=== PATIENT | male | born 1945 | race Caucasian/White ===

== ENCOUNTER 2022-12-27 16:13 | Emergency (ER) | payer MEDICARE, OTHER ==
[~2022-12-27] VITALS: Ht 182.9 cm; Wt 101.6 kg
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
[2022-12-27 16:38] LABS: BASOPHILS % (AUTO) 1 % (0-10); EOSINOPHILS # (AUTO) 0.2 10^3/uL (0.0-0.3); EOSINOPHILS % (AUTO) 3 % (0-10); HEMATOCRIT 31 % (40-54); HEMOGLOBIN 9.5 g/dL (13.3-17.7); LYMPHOCYTES # (AUTO) 1.6 10^3/uL (1.0-4.0); LYMPHOCYTES % (AUTO) 26 % (12-44); MEAN CORPUSCULAR HEMOGLOBIN 27 pg (25-34); MEAN CORPUSCULAR HGB CONC 31 g/dL (32-36); MEAN CORPUSCULAR VOLUME 87 fL (80-99); MEAN PLATELET VOLUME 9.8 fL (9.0-12.2); MONOCYTES # (AUTO) 0.6 10^3/uL (0.0-1.0); MONOCYTES % (AUTO) 9 % (0-12); NEUTROPHILS # (AUTO) 3.9 10^3/uL (1.8-7.8); NEUTROPHILS % (AUTO) 62 % (42-75); PLATELET COUNT 268 10^3/uL (130-400); WHITE BLOOD COUNT 6.3 10^3/uL (4.3-11.0)
[2022-12-27 16:39] LABS: BILIRUBIN,URINE NEGATIVE (NEGATIVE); CLARITY,URINE CLEAR; COLOR,URINE YELLOW; GLUCOSE, URINE (UA) NEGATIVE (NEGATIVE); KETONES,URINE TRACE (NEGATIVE); LEUKOCYTE ESTERASE ,URINE NEGATIVE (NEGATIVE); NITRITE,URINE NEGATIVE (NEGATIVE); PH,URINE 5.5 (5-9); PROTEIN,URINE NEGATIVE (NEGATIVE)
[2022-12-27 16:47] LABS: BACTERIA,URINE NEGATIVE /HPF; HYALINE CASTS, URINE RARE /LPF; WBC,URINE RARE /HPF
[2022-12-27 16:53] LABS: INR 0.9 (0.8-1.4); PROTHROMBIN TIME PATIENT 12.3 SEC (12.2-14.7)
[2022-12-27 17:04] LABS: ALANINE AMINOTRANSFERASE 15 U/L (0-55); ALBUMIN 3.7 GM/DL (3.2-4.5); ALKALINE PHOSPHATASE 97 U/L (40-136); BILIRUBIN,TOTAL 0.2 MG/DL (0.1-1.0); BUN/CREATININE RATIO 19; CALCIUM 9.6 MG/DL (8.5-10.1); CARBON DIOXIDE 26 MMOL/L (21-32); CHLORIDE 104 MMOL/L (98-107); CREATININE SERUM 1.29 MG/DL (0.60-1.30); GFR ESTIMATED 57; GLUCOSE 126 MG/DL (70-105); MAGNESIUM 1.8 MG/DL (1.6-2.4); POTASSIUM 4.5 MMOL/L (3.6-5.0); SODIUM 140 MMOL/L (135-145); TOTAL PROTEIN 6.7 GM/DL (6.4-8.2)
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
[2022-12-27 18:20] VITALS: BP 142/78
== END 2022-12-27 18:22 | disposition home or self-care (01) ==
LOC: ER FS 16:17
DX: M50.30 Other cervical disc degeneration, unspecified cervical region (principal)
CPT/HCPCS: 36415; 70450; 72125; 80053; 81000; 83735; 84484; 85025; 85610; 85730

== ENCOUNTER 2023-03-09 14:01 | Outpatient (CLI) | payer MEDICARE, OTHER ==
[~2023-03-09] VITALS: Ht 180.3 cm; Wt 98.5 kg
[2023-03-09] MEDS ORDERED: GLIM4TAB5 PO (15:51)
[2023-03-09] MEDS ORDERED: DOXA2TAB2 PO (15:51)
[2023-03-09] MEDS ORDERED: LISI5TAB20 PO (15:51)
[2023-03-09] MEDS ORDERED: ACET325T38 PO (15:51)
[2023-03-09] MEDS ORDERED: METF750T45 PO (15:51)
[2023-03-09] MEDS ORDERED: LOVA20TA2 PO (15:51)
[2023-03-09] MEDS ORDERED: FERR324T4 PO (15:51)
[2023-03-09] MEDS ORDERED: CHOL500044 PO (15:51)
[2023-03-09] MEDS ORDERED: KRIL500C PO (15:51)
== END 2023-03-09 15:53 | disposition home or self-care (01) ==
LOC: PREOP 14:01
PROVIDERS: ATTEND Surgery
DX: Z01.818 Encounter for other preprocedural examination (principal)

== ENCOUNTER 2023-03-17 10:22 | Day surgery (SDC) | payer MEDICARE, OTHER ==
[~2023-03-17] VITALS: Ht 180 cm; Wt 98.5 kg
[~2023-03-17 10:22] MED LIST: ACET325T38 PO; CHOL500044 PO; DOXA2TAB2 PO; FERR324T4 PO; GLIM4TAB5 PO; KRIL500C PO; LISI5TAB20 PO; LOVA20TA2 PO; METF750T45 PO
[2023-03-17] MEDS ORDERED: LACTATED RINGERS 1,000 ML IV STA (10:28)
[2023-03-17] MEDS ORDERED: HURRICAINE EXT TUBE (BENZOCAINE) XX PRN (10:30)
[2023-03-17] MEDS ORDERED: LACTATED RINGERS 1,000 ML IV ONE (10:31)
[2023-03-17 10:45] VITALS: BP 135/108
--- NOTE | 2023-03-17 13:25 | Progress Note-Pre Operative ---
Pre-Operative Progress Note Date H&P Reviewed: Mar 17, 2023 Time H&P Reviewed: 13:25 History & Physical: H&P Reviewed, Patient Examed, No changes noted Pre-Operative Diagnosis: iron def anemia MURPHY RDZ DO Mar 17, 2023 13:25
[2023-03-17] MEDS ORDERED: PROPOFOL INJECTION 50 ML IV ONE (14:00)
[2023-03-17 14:50] VITALS: BP 126/74
[2023-03-17 14:55] VITALS: BP 127/59
--- NOTE | 2023-03-17 15:07 | Anesthesia-General Post-Op ---
MAC Patient Condition Mental Status/LOC: Same as Preop Cardiovascular: Satisfactory Nausea/Vomiting: Absent Respiratory: Satisfactory Pain: Controlled Complications: Absent Post Op Complications Complications None Follow Up Care/Instructions Patient Instructions None needed. Anesthesiology Discharge Order Discharge Order Patient was doing well after the procedure with no complaints, stable vital signs, no apparent adverse anesthesia problems. No complications reported per nursing. ARELY SHULTZ DO Mar 17, 2023 15:07
[2023-03-17 15:12] VITALS: BP 127/59
--- NOTE | 2023-03-17 15:30 | Progress Note-Post Operative ---
Post-Operative Progess Note Surgeon (s)/Manager Crisis (s) Surgeon MURPHY RDZ DO Manager Crisis: na Pre-Operative Diagnosis iron def anemia Post-Operative Diagnosis duodenitis with small ulcerations, vinson's esophagus, cecal and hepatic flexure mass Procedure & Operative Findings Date of Procedure 03/17/23 Procedure Performed/Findings egd c biopsies, colonoscopy c cold biopsies and dakota inking Anesthesia Type per [facility] Estimated Blood Loss Estimated blood loss (mL): scant Specimens/Packing Specimens Removed duodenum, antrum, ge, cecal mass, hepatic flexure mass MURPHY RDZ DO Mar 17, 2023 15:30
[2023-03-17] MEDS ORDERED: PANT40TA2 PO (15:31)
--- NOTE | 2023-03-17 15:32 | Discharge Inst-Simple/Standard ---
Discharge Inst-Standard Discharge Medications New, Converted or Re-Newed RX: Transmitted to Pharmacy Patient Instructions/Follow Up Plan of Care/Instructions/FU: 2 weeks umair Activity as Tolerated: Yes Discharge Diet: Regular Diet MURPHY RDZ DO Mar 17, 2023 15:32
[2023-03-17 16:05] VITALS: BP 127/59
--- NOTE | 2023-03-17 18:30 | OPERATIVE REPORT ---
DATE OF SERVICE: 03/17/2023 PREOPERATIVE DIAGNOSIS: Iron deficiency anemia. POSTOPERATIVE DIAGNOSES: Duodenitis with small ulcerations, Contreras's esophagus, cecal and hepatic flexure mass. PROCEDURES: EGD with biopsies, colonoscopy with cold biopsies and Emmy inking. SURGEON: Murphy Peralta DO ANESTHESIA: Per MDA. ESTIMATED BLOOD LOSS: Scant. COMPLICATIONS: None. SPECIMENS: Duodenum, antrum, GE junction, cecal mass, hepatic flexure mass. INDICATIONS: The patient is a 77-year-old male with iron deficiency anemia. He understands risks and benefits of procedure and wished to proceed. Consent was signed in chart. DESCRIPTION OF PROCEDURE: The patient was taken to endoscopy suite and placed in left lateral recumbent position. Timeout was performed. Scope was inserted in the mouth, down the esophagus and stomach, into the duodenum without difficulty. No polyps, masses or ulcerations in the second portion of the duodenum. First portion of the duodenum had inflammation present consistent with duodenitis and some small ulcerations. Biopsy of this area was obtained. Scope was retracted back into stomach where it was further insufflated. No polyps, masses or ulcerations were visualized within the antrum. Biopsy of the antrum was obtained. Scope was retroflexed noting some small benign-appearing polyps, no other pathology. Scope was returned to its normal position, slowly withdrawn until distal esophagus, demonstrating some slight Contreras's esophagus. Biopsy of GE junction was obtained. Scope was slowly retracted back until completely removed. Digital rectal exam was performed. No palpable polyps, masses or ulcerations. Scope was inserted into the rectum and advanced all the way to the cecum with minimal difficulty. Prep was adequate. Scope was slowly retracted back to the cecum where a large mass was present, which extended up into the ascending colon, which cold biopsies were obtained. Scope was then continuously retracted back to the hepatic flexure where a second mass was present, which was flat but still decent size, which cold biopsies were obtained. Just distal to this area, 3 mL of Emmy ink were injected, 1 mL in three locations just distal to this mass. Scope was then continuously retracted back. No polyps, masses or ulcerations within the remainder of the transverse, descending and sigmoid colon. Once in the rectum, scope was retroflexed noting no other pathology. Scope was returned to its normal position, slowly withdrawn until completely removed. The patient tolerated the procedure well without any complications and was taken to recovery room in stable condition. RECOMMENDATIONS: The patient will need further workup with imaging [ ] likely a colonic cancer. We will get further imaging and blood work. He will follow up in 2 weeks when this imaging and blood work is ordered. Due to the iron deficiency anemia, this is likely the source; therefore, we will plan on doing an extended right colon resection. Also, the patient will be started on Protonix 40 mg daily for the upper GI pathology. Job ID: [id number] DocumentID: [id number] Dictated Date: 03/17/2023 15:37:22 Border Guard Date: 03/17/2023 18:28:00 Dictated By: MURPHY PERALTA DO
== END 2023-03-17 16:05 | disposition home or self-care (01) ==
LOC: ENDO 10:22
PROVIDERS: ATTEND Surgery
DX: C18.0 Malignant neoplasm of cecum (principal); Z87.891 Personal history of nicotine dependence; D12.3 Benign neoplasm of transverse colon; K29.80 Duodenitis without bleeding; K26.9 Duodenal ulcer, unspecified as acute or chronic, without hemorrhage or perforation; K22.70 Barrett's esophagus without dysplasia; K29.50 Unspecified chronic gastritis without bleeding; D50.9 Iron deficiency anemia, unspecified; K31.7 Polyp of stomach and duodenum; E11.9 Type 2 diabetes mellitus without complications; Z79.84 Long term (current) use of oral hypoglycemic drugs
CPT/HCPCS: 82947

== ENCOUNTER → 2023-04-06 | Outpatient (CLI) | payer MEDICARE, OTHER ==
[~2023-04-06] MED LIST changes: +CATHETER FLUSH 10 ML SYR IVP PRN; +PANT40TA2 PO
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
== END ==
LOC: RAD 11:08
PROVIDERS: ATTEND Surgery
DX: C18.9 Malignant neoplasm of colon, unspecified (principal); Z90.49 Acquired absence of other specified parts of digestive tract
CPT/HCPCS: 78815; 82947; A9552

== ENCOUNTER → 2023-04-07 | Outpatient (CLI) | payer MEDICARE, OTHER ==
[~2023-04-07] MED LIST changes: -CATHETER FLUSH 10 ML SYR IVP PRN; +IOHEXOL 350 MG/ML 100 ML (OMNIPAQUE 350) VIAL IV ONE; +NS 100 ML (IVPB) BAG IV ONE
[2023-04-07 11:40] LABS: CREATININE SERUM 1.3 MG/DL (0.60-1.30)
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
== END ==
LOC: RAD 10:47
PROVIDERS: ATTEND Nurse Practitioner
DX: C18.9 Malignant neoplasm of colon, unspecified (principal)
CPT/HCPCS: 36415; 71260; 74177; 82378; 82565; 84520

== ENCOUNTER 2023-04-11 05:39 | Outpatient (CLI) | payer MEDICARE, OTHER ==
[~2023-04-11] VITALS: Ht 180.3 cm; Wt 95.5 kg
[~2023-04-11 05:39] MED LIST changes: -IOHEXOL 350 MG/ML 100 ML (OMNIPAQUE 350) VIAL IV ONE; -NS 100 ML (IVPB) BAG IV ONE
== END 2023-04-11 16:36 | disposition home or self-care (01) ==
LOC: PREOP 05:39
PROVIDERS: ATTEND Surgery
DX: Z01.818 Encounter for other preprocedural examination (principal)

== ENCOUNTER 2023-04-11 12:15 | Outpatient (RCR) | payer MEDICARE, OTHER ==
[2023-04-17] MEDS ORDERED: RIVA20TA PO (12:26)
[2023-04-17] MEDS ORDERED: GLIM4TAB5 PO (12:26)
[2023-04-17] MEDS ORDERED: DILT240C91 PO (12:26)
[2023-04-17] MEDS ORDERED: ACHD5005 PO (12:26)
== END 2023-05-11 | disposition home or self-care (01) ==
LOC: ONC 12:15
PROVIDERS: ATTEND Internal Medicine Hematology & Oncology
DX: C18.9 Malignant neoplasm of colon, unspecified (principal)
CPT/HCPCS: 99214

== ENCOUNTER 2023-04-13 06:39 | Inpatient (IN) | payer MEDICARE, OTHER ==
[2023-04-13] VITALS (17 sets, daily range): BP systolic 100–154; BP diastolic 49–74
[~2023-04-13] VITALS: Ht 180.3 cm; Wt 96.0 kg
[2023-04-13] MEDS ORDERED: LIDOCAINE 1% w/EPI 1:100,000 20 ML VIAL ONE (07:21)
[2023-04-13] MEDS ORDERED: metroNIDAZOLE 500MG/100ML IVPB 100 ML IV ONE (07:30)
[2023-04-13] MEDS ORDERED: ceFAZolin INJECTION 2,000 MG in NS (IVPB) 50 ML 50 ML IV ONE (07:30)
[2023-04-13] MEDS ORDERED: LACTATED RINGERS 1,000 ML IV PRN (07:30)
[2023-04-13] MEDS ORDERED: CATHETER FLUSH 10 ML SYR IVP PRN (07:45)
[2023-04-13] MEDS ORDERED: fentaNYL INJECTION 100 MCG/2 ML VIAL ONE (07:49)
--- NOTE | 2023-04-13 08:00 | Progress Note-Pre Operative ---
Pre-Operative Progress Note Date H&P Reviewed: Apr 13, 2023 Time H&P Reviewed: 07:46 History & Physical: H&P Reviewed, Patient Examed, No changes noted Pre-Operative Diagnosis: right colon cancer MURPHY RDZ DO Apr 13, 2023 08:00
[2023-04-13] MEDS ORDERED: LIDOCAINE PF 2% 5 ML VIAL ONE (09:44)
[2023-04-13] MEDS ORDERED: proPOfol 200 MG/20 ML (DIPRIVAN) VIAL IV ONE (09:44)
[2023-04-13] MEDS ORDERED: ONDANSETRON 4 MG/2 ML (SDV) Z0FRAN ONE (09:45)
[2023-04-13] MEDS ORDERED: NEOSTIGMINE (BLOXIVERZ ) 1 MG/1ML 10 ML VIAL ONE (09:45)
[2023-04-13] MEDS ORDERED: GLYCOPYRROLATE INJ 0.2 MG/ML 2 ML VIAL ONE (09:45)
[2023-04-13] MEDS ORDERED: ROCURONIUM 50 MG/5 ML (ZEMURON) VIAL IV ONE (09:45)
[2023-04-13] MEDS ORDERED: SEVOFLURANE (ULTANE) 15 ML INHAL SOLN ONE (09:55)
--- NOTE | 2023-04-13 09:58 | Progress Note-Post Operative ---
Post-Operative Progess Note Surgeon (s)/Bonding Machine Setter (s) Surgeon MURPHY RDZ DO Bonding Machine Setter: Dr. Tran Pre-Operative Diagnosis right colon cancer Post-Operative Diagnosis same Procedure & Operative Findings Date of Procedure 04/13/23 Procedure Performed/Findings lap hand assisted extended right colon resection Anesthesia Type general Estimated Blood Loss Estimated blood loss (mL): minimal Specimens/Packing Specimens Removed right colon MURPHY RDZ DO Apr 13, 2023 09:58
[2023-04-13] MEDS ORDERED: ONDANSETRON 4 MG/2 ML (SDV) Z0FRAN IVP PRN (10:45)
[2023-04-13] MEDS ORDERED: SUGAMMADEX 500 MG/5 ML VIAL (BRIDION) IV ONE (10:51)
[2023-04-13] MEDS ORDERED: morphine INJ 10 MG/ML 1ML (SYR OR VIAL) ONE (11:07)
[2023-04-13] MEDS ORDERED: HYDROmorphone INJECTION 2 MG/ML VIAL IV ONE (11:15)
[2023-04-13] MEDS ORDERED: morphine INJ 10 MG/ML 1ML (SYR OR VIAL) IVP ONE (11:15)
[2023-04-13] MEDS: morphine INJ 4 MG/ML 1 ML (VIAL/SYRINGE) IVP PRN ×2 (12:01→15:19)
[2023-04-13] MEDS: LACTATED RINGERS 1,000 ML IV SCH ×2 (12:10→14:10)
[2023-04-13] MEDS ORDERED: RT-ALBUTEROL SULF 2.5 MG/3 ML PRE-MIX VIAL INH PRN (13:00)
--- NOTE | 2023-04-13 13:01 | Physical Therapy Progress Note ---
Therapy Progress Note Patient just out of surgery. PT to initiate evaluation tomorrow ALTHEA Mcnamara PT Apr 13, 2023 13:01
--- NOTE | 2023-04-13 13:38 | Consultation ---
AGUEDABYRON 04/13/23 1338: HPI History of Present Illness: HPI/Chief Complaint Consult requested by Dr. Peralta for medical management. Patient is a 77-year-old male who underwent extended right colon resection today. He underwent an EGD and colonoscopy on 03/17 for iron-deficiency anemia and was found to have masses at the cecum and hepatic flexure. Biopsies were taken and further workup revealed this to be colon cancer, leading to the extended right colon resection. Patient is seen sleeping comfortably in bed, easily aroused. He reports that he is having some pain currently but that it is well-controlled with the pain medication. He reports no other complaints. Incisions are clean and dressed. Patient has no other complaints. Source: patient, old records Exam Limitations: no limitations Date Seen 04/13/23 Attending Physician Vaibhav Ni MD PCP Admitting Physician: Gui Peralta DO Attending Physician: Gui Peralta DO Referring Physician Date of Admission Apr 13, 2023 at 06:39 Home Medications & Allergies Home Medications Reviewed patient Home Medication Reconciliation performed by pharmacy medication reconciliations vending machine technician and/or nursing. Patients Allergies have been reviewed. Allergies Allergies Coded Allergies No Known Drug Allergies (Unverified04/13/23) Past Jdnblcr-Jaxbkd-Qooyre Hx Patient Social History Tobacco Use?: No Smoking Status: Former Smoker Smokeless type used: Chew Smokeless Tobacco Frequency: Former User Use of E-Cig and/or Vaping dev: No Substance use?: No Alcohol Use?: No Pt feels they are or have been: No Immunizations Up To Date Hepatitis A: No Hepatitis B: No Seasonal Allergies Seasonal Allergies: Yes Current Status Communicates: Verbally Primary Language: Italian Preferred Spoken Language: Italian Is interpretation needed?: No Sensory deficits: Vision impairment Implanted or Applied Medical D: None Past Medical History Surgeries: Gallbladder Hypertension Arthritis Diabetes, Non-Insulin dep Blood Disorders: Yes (anemia) Review of Systems Constitutional: No chills, No fever EENTM: No hearing loss, No blurred vision, No double vision Respiratory: No cough, No dyspnea on exertion, No short of breath Cardiovascular: No chest pain, No edema, No palpitations Gastrointestinal: abdominal pain (incisional, well-controlled); No nausea, No vomiting Genitourinary: No dysuria, No hematuria Musculoskeletal: No back pain, No joint pain, No neck pain Skin: No change in color, No change in hair/nails Psychiatric/Neurological: Denies Numbness, Denies Tingling, Denies Weakness Physical Exam Physical Exam Vital Signs Vital Signs - First Documented Capillary Refill : Height, Weight, BMI Height: '" Weight: lbs. oz. kg; 29.37 BMI Method: General Appearance: No Apparent Distress, WD/WN HEENT: PERRL/EOMI, Pharynx Normal Neck: Non Tender, Supple Respiratory: Chest Non Tender, Lungs Clear, Normal Breath Sounds Cardiovascular: Regular Rate, Rhythm, No Edema, Normal Peripheral Pulses Gastrointestinal: Soft, Other (Incisions clean and dry) Rectal: Deferred Back: No Vertebral Tenderness Extremity: Normal Capillary Refill, Non Tender, No Pedal Edema Neurologic/Psychiatric: Alert, Oriented x3 Skin: Normal Color, Warm/Dry Lymphatic: No Adenopathy (cervical) Results Results/Procedures Labs Patient resulted labs reviewed. Assessment/Plan Assessment and Plan Assess & Plan/Chief Complaint Non-insulin dependent T2DM: hold PO medications, start on SSI, will check A1C S/P extended right colon resection: managed by general surgery Pain currently well-managed: managed by general surgery Encouraged patient to use IS as directed Patient is starting with PT tomorrow PILLO DOSS MD 04/13/23 1552: HPI History of Present Illness: Source: patient Exam Limitations: no limitations Review of Systems Constitutional: no symptoms reported; No chills, No fever EENTM: no symptoms reported; No mouth pain, No nose congestion, No nose pain Respiratory: no symptoms reported; No cough, No dyspnea on exertion, No short of breath Cardiovascular: no symptoms reported; No chest pain, No edema, No palpitations Gastrointestinal: abdominal pain (incisional, well-controlled); No loss of appetite, No nausea, No vomiting Genitourinary: no symptoms reported Musculoskeletal: no symptoms reported Skin: no symptoms reported Psychiatric/Neurological: No Symptoms Reported Physical Exam Physical Exam General Appearance: No Apparent Distress, WD/WN HEENT: PERRL/EOMI Neck: Full Range of Motion, Non Tender, Supple Respiratory: Chest Non Tender, Lungs Clear, Normal Breath Sounds, No Accessory Muscle Use, No Respiratory Distress Cardiovascular: Regular Rate, Rhythm, No Edema, Normal Peripheral Pulses Gastrointestinal: Soft, Tenderness (incisional), Other (Incisions clean and dry) Back: No CVA Tenderness, No Vertebral Tenderness Extremity: Normal Capillary Refill, Non Tender, No Calf Tenderness, No Pedal Edema Neurologic/Psychiatric: Alert, Normal Mood/Affect, tree killer II-XII Norm as Tested Skin: Normal Color, Warm/Dry Lymphatic: No Adenopathy (cervical) Supervisory-Addendum Brief Verification & Attestation Participated in pt care: history, physical Personally performed: exam, history Care discussed with: Medical Student Procedures: n/a Verification and Attestation of Medical Student E/M Service A medical student performed and documented this service in my presence. I reviewed and verified all information documented by the medical student and made modifications to such information, when appropriate. I personally performed the physical exam and medical decision making. Pillo Doss, Apr 13, 2023,15:50 Appreciate medical consult A/P Colon Ca s/p parital colon resection NIDDM HLD - Pain management per general surgery. Will check blood sugars every 6 hrs while patient is on CLD and treat with SSI. Patient extubated and on NC. Ok to transfer to 4th floor out of ICU. BYRON ROMEO Apr 13, 2023 13:38 PILLO DOSS MD Apr 13, 2023 15:52
--- NOTE | 2023-04-13 14:38 | Tele-ICU Progress Note ---
Subjective Date Seen by a Provider: Apr 13, 2023 Time Seen by a Provider: 14:37 Subjective/Events-last exam (Tele-ICU Physician , Progress Note ) Service provided via interactive audio and video telecommunications E-CARE system to a patient admitted to ICU bed in [facility]. Patient is seen today due to persistent need of ICU care Available chart/ vitals / labs / Images reviewed Video assessment done using teleICU camera, rest of exam as per RN He is a 76-year-old male who was recently diagnosed to have a right colon cancer upon investigation for iron deficiency anemia in March 2023. Today he is electively admitted and underwent extended right hemicolectomy. Postoperative. He was extubated but apparently he was very somnolent and not easily arousable. Hence he is transferred to intensive care unit for close monitoring and management. Currently he is on a facemask and oxygenating well about 97%. Hemodynamically stable. Impression 1. Right colon cancer. Status post right extended colectomy 2. 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 Recommendation 1. Continue oxygenation with facemask and wean oxygen as tolerated 2. Hydrate patient for surgical service 3. SCDs for DVT prophylaxis for now. No telemetry ICU consultation is requested however this patient is being evaluated by our service per protocol. Coordination of care with general surgeon and primary care physician. I am remotely monitoring this patient from Tele icu station in [place]. I am unable to do the bedside exam, and history/physical and pertinent information is taken from other notes in the computer and bedside staff. Certain portions of this document may have been dictated utilizing voice recognition technology such as Dragon. Inherent to this technology, typographical and grammatical errors may exist. As much as I am diligent to identify and correct to these mistakes, some errors may remain in the document. Critical care time devoted to this patient today is approximately is--20 minutes. Certain portions of this document may have been dictated utilizing voice recognition technology such as Dragon. Inherent to this technology, typographical and grammatical errors may exist. As much as I am diligent to identify and correct to these mistakes, some errors may remain in the document. Sepsis Event Evaluation Height, Weight, BMI Height: '" Weight: lbs. oz. kg; 29.37 BMI Method: Exam Exam Patient acknowledged, consented, and participated in this virtual visit which was conducted using real time audio/video Vital Signs Date Time Temp Pulse Resp B/P (MAP) Pulse Ox O2 Delivery O2 Flow Rate FiO2 04/13/23 12:40 35.7 73 100 04/13/23 12:31 35.7 04/13/23 12:00 73 22 110/52 (71) 100 OxyMask 8.00 04/13/23 11:39 77 04/13/23 11:30 OxyMask 10.00 04/13/23 11:30 123/54 (77) OxyMask 8.00 04/13/23 11:30 97 OxyMask 8.00 04/13/23 11:20 36.1 22 113/55 (74) 89 Face Tent 10.00 04/13/23 11:15 Face Tent 10.00 04/13/23 11:10 26 100/50 (67) 91 Face Tent 10.00 04/13/23 11:03 OxyMask 10.00 04/13/23 11:00 21 104/49 (67) 96 T Piece 10.00 04/13/23 10:50 22 149/69 (95) 98 T Piece 10.00 04/13/23 10:45 T Piece 10.00 04/13/23 10:40 22 154/66 (95) 98 T Piece 10.00 04/13/23 10:30 17 151/66 (94) 98 T Piece 10.00 04/13/23 10:30 T Piece 10.00 04/13/23 10:24 25 145/61 (89) 98 T Piece 10.00 04/13/23 10:17 37.2 30 147/59 (88) 97 T Piece 10.00 04/13/23 10:17 T Piece 10.00 04/13/23 07:15 95 Room Air 04/13/23 07:15 36.4 110 18 137/74 (95) 95 Room Air Height & Weight Height: '" Weight: lbs. oz. kg; 29.37 BMI Method: General Appearance: No Apparent Distress, WD/WN HEENT: PERRL/EOMI, Pharynx Normal Neck: Non Tender, Supple Respiratory: Chest Non Tender, Lungs Clear, Normal Breath Sounds Cardiovascular: Regular Rate, Rhythm, No Edema, Normal Peripheral Pulses Extremity: Normal Capillary Refill, Non Tender, No Pedal Edema Neurologic/Psychiatric: Alert, Oriented x3 Skin: Normal Color, Warm/Dry Lymphatic: No Adenopathy (cervical) Assessment/Plan Assessment/Plan as above Critical Care: Critically Ill Patient Time spent with patient (mins): 20 JOE MCDANIEL MD Apr 13, 2023 14:38
[2023-04-13] MEDS: ceFAZolin INJECTION 2,000 MG in NS (IVPB) 50 ML 50 ML IV SCH (15:19)
[2023-04-13] MEDS: metroNIDAZOLE 500MG/100ML IVPB 100 ML IV SCH (16:12)
[2023-04-13] MEDS: HYDROcodone/ACETAMINOPHEN 5 MG/325 MG TABLET PO PRN ×2 (16:34→20:30)
[2023-04-13] MEDS: inSUlin ASPART 1 UNIT/0.01 ML (PER UNIT) SC SCH ×2 (17:31→20:33)
--- NOTE | 2023-04-13 18:05 | OPERATIVE REPORT ---
DATE OF SERVICE: 04/13/2023 PREOPERATIVE DIAGNOSIS: Right colon cancer. POSTOPERATIVE DIAGNOSIS: Right colon cancer. PROCEDURE: Laparoscopic-assisted right colon resection. SURGEON: Murphy Peralta DO IMAGING ANALYST: Kuldip Tran DO, assisted in retraction, dissection, and closure. ANESTHESIA: General. ESTIMATED BLOOD LOSS: Minimal. COMPLICATIONS: None. INDICATIONS: The patient is a 77-year-old male with a right colon cancer. He also has polyp in the transverse colon, a tattoo was placed for planned resection. The patient understands all risks and benefits and wishes to proceed. Consent was signed in chart. DESCRIPTION OF PROCEDURE: The patient was taken to the operating suite where he was prepped and draped in sterile fashion. Timeout was performed. Midline incision made around the umbilicus for hand port. Abdomen was then entered. A 12 mm trocar was placed in the subxiphoid region. A 5 mm trocar was placed in the right lower quadrant all under visualization with the laparoscope. Colon was then grasped, elevated and mobilized along the white line of Toldt. There were some small bowel that was adherent down into the right gutter/pelvis which had to be mobilized free. The colon was made into a midline structure. Then brought out through the hand port incision. The distal ileum was dissected around with blunt and cautery dissection. A BELL stapler was fired across. The tattoo in the transverse colon after hepatic flexure also was mobilized and just distal to the tattooing, the transverse colon was dissected around with both blunt and cautery dissection. BELL stapler was fired across this area just distal to the tattooing. A LigaSure was then used to divide the mesentery. Specimen was removed. A eqnz-aj-ygfs anastomosis was then created with the small bowel to the transverse colon. A crotch stitch was placed with 3-0 Vicryl. Had a patent lumen and the bowel all had a viable appearance. The abdomen was then irrigated and suctioned. Hemostasis was achieved. The abdomen was then reinsufflated after hand port incision was then closed using 1-0 looped PDS. The abdomen was then reinsufflated, everything had normal appearance. The abdomen was then desufflated. The trocars were removed. The skin was then closed with geeta after wounds were irrigated. The patient tolerated the procedure well without complications, taken to recovery room in stable condition. Job ID: [id number] DocumentID: [id number] Dictated Date: 04/13/2023 13:34:46 [employer] Date: 04/13/2023 18:04:00 Dictated By: MURPHY PERALTA DO
[2023-04-14] VITALS (10 sets, daily range): BP systolic 106–154; BP diastolic 42–76
[2023-04-14] MEDS: metroNIDAZOLE 500MG/100ML IVPB 100 ML IV SCH (00:37)
[2023-04-14] MEDS: ceFAZolin INJECTION 2,000 MG in NS (IVPB) 50 ML 50 ML IV SCH (02:15)
[2023-04-14] MEDS: LACTATED RINGERS 1,000 ML IV SCH ×3 (02:15→19:02)
[2023-04-14] MEDS: HYDROcodone/ACETAMINOPHEN 5 MG/325 MG TABLET PO PRN ×4 (02:54→19:02)
[2023-04-14 05:39] LABS: HEMATOCRIT 23 % (40-54); MEAN CORPUSCULAR HEMOGLOBIN 25 pg (25-34); MEAN CORPUSCULAR HGB CONC 30 g/dL (32-36); MEAN CORPUSCULAR VOLUME 84 fL (80-99); MEAN PLATELET VOLUME 10.1 fL (9.0-12.2); PLATELET COUNT 267 10^3/uL (130-400)
[2023-04-14 05:42] LABS: HEMOGLOBIN 6.9 g/dL (13.3-17.7)
[2023-04-14 05:59] LABS: CALCIUM 8.7 MG/DL (8.5-10.1); CREATININE SERUM 1.09 MG/DL (0.60-1.30); MAGNESIUM 1.6 MG/DL (1.6-2.4); POTASSIUM 4.2 MMOL/L (3.6-5.0)
[2023-04-14] MEDS: inSUlin ASPART 1 UNIT/0.01 ML (PER UNIT) SC SCH ×4 (06:17→21:02)
[2023-04-14] MEDS ORDERED: NS IV 500 ML 500 ML IV SCH (06:30)
[2023-04-14] MEDS: ONDANSETRON 4 MG/2 ML (SDV) Z0FRAN IVP PRN ×2 (08:06→17:09)
--- NOTE | 2023-04-14 08:23 | Physical Therapy Evaluation ---
PT Evaluation-General Medical Diagnosis Admission Date Apr 13, 2023 at 06:39 Medical Diagnosis: colon cancer Onset Date: Apr 13, 2023 Therapy Diagnosis Therapy Diagnosis: debility/weakness Precautions Precautions/Isolations: Fall Prevention, Standard Precautions Referral Physician: Kathryn Reason for Referral: Evaluation/Treatment Medical History Pertinent Medical History: DM Current History s/p colon resection Reviewed History: Yes Social History Home: Single Level Prior Prior Level of Function SCALE: Activities may be completed with or without assistive devices. 5-Dntdogtzfh-xgnqkdr completes the activity by him/herself with no assistance from a helper. 5-Set-up or Clean-up Assistance-helper sets up or cleans up; patient completes activity. [place] assists only prior to or following the activity. 4-Supervision or Touching Assistance-helper provides verbal cues and/or touching/steadying and/or contact guard assistance as patient completes activity. Assistance may be provided throughout the activity or intermittently. 3-Partial/Moderate Assistance-helper does LESS THAN HALF the effort. [place] lifts, holds or supports trunk or limbs, but provides less than half the effort. 2-Substantial/Maximal Assistance-helper does MORE THAN HALF the effort. [place] lifts or holds trunk or limbs and provides more than half the effort. 3-Bahsuekgi-spdezi does ALL the effort. Patient does none of the effort to complete the activity. Or, the assistance of 2 or more helpers is required for the patient to complete the activity. If activity was not attempted, code reason: 7-Patient Refused. 9-Not Applicable-not attempted and the patient did not perform the activity before the current illness, exacerbation or injury. 10-Not Attempted due to Environmental Limitations-(lack of equipment, weather restraints, etc.). 88-Not Attempted due to Medical Conditions or Safety Concerns. Bed Mobility: 6 Transfers (B,C,W/C): 6 Gait: 6 Stairs: 6 Indoor Mobility (Ambulation): Independent Stairs: Independent Prior Devices Use: None PT Evaluation-Current Subjective Patient agrees to PT. Pain Numeric Pain Scale: 8 Location: Lower Location Body Site: Abdomen Pain Description: Acute Objective Patient Orientation: Normal For Age Attachments: Oxygen, Llamas Catheter, IV ROM/Strength ROM Lower Extremities bilateral LE WFL Strength Lower Extremities 4-/5 grossly bilateral LE all planes Integumentary/Posture Bladder Incontinence: Llamas Cath Posture WFL Neuromuscular (Tone, Coordination, Reflexes) grossly intact Sensory Vision: Functional Hearing: Functional Transfers Lying to Sitting/Side of Bed(Q: 4 Sit to Stand (QC): 4 Chair/Zry-er-Dcalf Xfer(QC): 4 Gait Mode of Locomotion: Walk Anticipated Mode of Locomotion: Walk Walk 10 feet (QC): 4 Walk 50 ft with 2 Turns(QC): 88 Walk 150 ft (QC): 88 Distance: 30' Gait Assistive Device: FWW Comments/Gait Description slow, steady Balance Sitting Static: Normal Sitting Dynamic: Normal Standing Static: Normal Standing Dynamic: Normal Assessment/Needs Patient will benefit from skilled PT to address functional strength and mobility to improve current LOF to safely return to home at maximum LOF. Patient currently limited due to low Hgb and nausea. Rehab Potential: Fair PT Regional Property Manager Goals Longterm Goals PT Longterm Goals Time Frame: Apr 29, 2023 Roll Left & Right (QC): 6 Sit to Lying (QC): 6 Lying-Sitting on Side/Bed(QC): 6 Sit to Stand (QC): 6 Chair/Jmj-ll-Yvqdj Xfer(QC): 6 Toilet Transfer (QC): 6 Walk 10 feet (QC): 6 Walk 50ft with 2 Turns (QC): 6 Walk 150 ft (QC): 6 PT Plan Treatment/Plan Treatment Plan: Continue Plan of Care Treatment Plan: Education, Functional Activity Amanda, Functional Strength, Gait, Safety, Therapeutic Exercise, Transfers Treatment Duration: Apr 29, 2023 Frequency: 6 times per week Estimated Hrs Per Day: .25 hour per day Patient and/or Family Agrees t: Yes Time Time In: 751 Time Out: 807 DATE: Apr 14, 2023 Total Billed Treatment Time: 16 Total Billed Treatment 1 visit [facility] 16 min ALTHEA MASSEY PT Apr 14, 2023 08:23
[2023-04-14] MEDS ORDERED: NS IV 500 ML 500 ML ONE (09:53)
--- NOTE | 2023-04-14 10:17 | Progress Note - Surgery ---
NEPTALI PHELPS 04/14/23 1017: Subjective Date Seen by a Provider: Apr 14, 2023 Time Seen by a Provider: 09:50 Subjective/Events-last exam Pt is recovering from lap hand assisted extended right colon resection performed yesterday due to R colon adenocarcinoma dx. Pt is responsive but drowsy, sitting upright in chair. He did not sleep well due to medical interruptions. He has a critical hgb of 6.9 this morning and 1 unit of blood is being administered. Pt has not had bowel movements but states that nurses have heard bowel sounds. He has not experienced flatulent passage yet. He states his abdomen is sore and rates his pain 5/10. He has eaten 'lunch' but denies a high appetite and and reports nausea on standing and walking several feet. He denies SOB, but PO2 has dropped to 90. His glucose was high overnight reaching levels as high as 236, but is progressively declining and as of this morning is 125. His daughter accompanies him. Review of Systems General: Fatigue; No Appetite Pulmonary: No Dyspnea Cardiovascular: No: Chest Pain, Edema Gastrointestinal: Nausea, Abdominal Pain Neurological: Weakness Focused Exam Respiratory: Lungs Clear, Normal Breath Sounds, No Respiratory Distress; No Crackles, No Rhonci, No Stridor, No Wheezing Cardiovascular: Regular Rate, Rhythm, No Edema, Normal Peripheral Pulses Peripheral Pulses: 2+ Radial Pulses (R), 2+ Radial Pulses (L) Skin: warm/dry, pallor Objective Exam Vital Signs Date Time Temp Pulse Resp B/P (MAP) Pulse Ox O2 Delivery O2 Flow Rate FiO2 04/14/23 07:22 37.0 92 18 106/42 (63) 90 Nasal Cannula 2.00 2.00 04/14/23 07:08 Nasal Cannula 2.00 04/14/23 06:57 94 Nasal Cannula 3.50 04/14/23 03:00 37.2 85 18 115/76 (89) 96 High Flow N/C 4.00 4.00 04/14/23 00:43 37.2 85 18 106/59 (75) 96 High Flow N/C 4.00 04/13/23 20:30 96 High Flow N/C 4.00 04/13/23 20:03 38.0 81 18 122/67 (85) 96 High Flow N/C 4.00 04/13/23 19:26 95 Nasal Cannula 3.50 04/13/23 16:10 36.3 80 17 112/56 (74) 93 High Flow N/C 4.00 04/13/23 16:00 99 High Flow N/C 4.00 04/13/23 16:00 86 18 89 OxyMask 4.00 04/13/23 15:07 OxyMask 4.00 04/13/23 15:00 79 23 112/56 (74) 95 OxyMask 8.00 04/13/23 14:00 73 15 122/60 (80) 98 OxyMask 8.00 04/13/23 13:00 79 04/13/23 13:00 79 19 115/60 (78) 95 OxyMask 8.00 04/13/23 12:40 35.7 73 100 04/13/23 12:31 35.7 04/13/23 12:00 73 22 110/52 (71) 100 OxyMask 8.00 04/13/23 11:39 77 04/13/23 11:30 OxyMask 10.00 04/13/23 11:30 123/54 (77) OxyMask 8.00 04/13/23 11:30 97 OxyMask 8.00 04/13/23 11:20 36.1 22 113/55 (74) 89 Face Tent 10.00 04/13/23 11:15 Face Tent 10.00 04/13/23 11:10 26 100/50 (67) 91 Face Tent 10.00 04/13/23 11:03 OxyMask 10.00 04/13/23 11:00 21 104/49 (67) 96 T Piece 10.00 04/13/23 10:50 22 149/69 (95) 98 T Piece 10.00 04/13/23 10:45 T Piece 10.00 04/13/23 10:40 22 154/66 (95) 98 T Piece 10.00 04/13/23 10:30 17 151/66 (94) 98 T Piece 10.00 04/13/23 10:30 T Piece 10.00 04/13/23 10:24 25 145/61 (89) 98 T Piece 10.00 04/13/23 10:17 37.2 30 147/59 (88) 97 T Piece 10.00 04/13/23 10:17 T Piece 10.00 I & O 04/14/23 06:59 Intake Total 3290 ml Output Total 1790 ml Balance 1500 ml Capillary Refill : General Appearance: No Apparent Distress, WD/WN HEENT: PERRL/EOMI; No Scleral Icterus (L), No Scleral Icterus (R) Neck: Full Range of Motion, Non Tender, Supple Respiratory: Chest Non Tender, Lungs Clear, Normal Breath Sounds, No Accessory Muscle Use, No Respiratory Distress; No Crackles Cardiovascular: Regular Rate, Rhythm, No Edema, Normal Peripheral Pulses Peripheral Pulses: 2+ Radial Pulses (R), 2+ Radial Pulses (L) Gastrointestinal: tenderness Extremity: Normal Capillary Refill, Non Tender, No Calf Tenderness, No Pedal Edema Neurologic/Psychiatric: Alert, Normal Mood/Affect, asbestos 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-XII Norm as Tested; N o Facial Droop Skin: Normal Color, Warm/Dry, Pallor Lymphatic: No Adenopathy (cervical) Results Lab Laboratory Tests 04/13/23 10:29: Glucometer 236H 04/13/23 13:40: Mean Blood Glucose 177H, Hemoglobin A1c 7.8H 04/13/23 16:15: Glucometer 195H 04/14/23 05:30: White Blood Count 7.0, Red Blood Count 2.74L, Hemoglobin 6.9*L, Hematocrit 23L, Mean Corpuscular Volume 84, Mean Corpuscular Hemoglobin 25, Mean Corpuscular Hemoglobin Concent 30L, Red Cell Distribution Width 14.0, Platelet Count 267, Mean Platelet Volume 10.1, Sodium Level 133L, Potassium Level 4.2, Chloride Le shekhar 105, Carbon Dioxide Level 19L, Anion Gap 9, Blood Urea Nitrogen 11, Creatinine 1.09, Estimat Glomerular Filtration Rate 69, BUN/Creatinine Ratio 10, Glucose Level 125H, Calcium Level 8.7, Magnesium Level 1.6 Microbiology 04/13/23 MRSA Screen - Final, Complete MRSA not isolated Assessment/Plan Assessment/Plan Admission Diagonsis Right Colectomy for Adenocarcinoma of the Right Colon Assessment/Plan Continue to monitor Hb levels and administer blood products per umair Continues SCDs and compression stockings to reduce DVT risk. Continue fluids and consider adding NaHCO3 to LR to increase Na levels Consider returning to HF nasal canula Continue monitoring incision site for infection Continue monitoring bowel movements Continue monitoring pain control MURPHY PERALTA DO 04/14/23 1450: Subjective Subjective/Events-last exam Pain controlled. Using IS some. Hgb 6.9 this morning and got 1 unit prbc. No bowel function. Some nausea today. Denies fever sweats chills shortness of breath or chest pain. 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 SCDs for dvt prophylaxis will not use lovenox yet due to anemia/transfusion IV fluids Incentive spirometer Ambulate Await bowel function to advance diet Supervisory-Addendum Brief Verification & Attestation Participated in pt care: history, MDM, physical Personally performed: exam, history, MDM, supervision of care Care discussed with: Medical Student Procedures: n/a Results interpretation: Verified all documentation Verification and Attestation of Medical Student E/M Service A medical student performed and documented this service in my presence. I reviewed and verified all information documented by the medical student and made modifications to such information, when appropriate. I personally performed the physical exam and medical decision making. Murphy Peralta, Apr 14, 2023,14:50 NEPTALI PHELPS Apr 14, 2023 10:17 MURPHY PERALTA DO Apr 14, 2023 14:50
--- NOTE | 2023-04-14 13:29 | Anesthesia-General Post-Op ---
General Patient Condition Mental Status/LOC: Same as Preop Cardiovascular: Satisfactory Nausea/Vomiting: Absent Respiratory: Satisfactory Pain: Controlled Complications: Absent Post Op Complications Complications None Follow Up Care/Instructions Patient Instructions None needed. Anesthesia/Patient Condition Patient Condition Patient is doing well. He was resting comfortably with no complaints currently. He did have some nausea this morning, but it is currently improved. He was up ambulating this morning and has stable vital signs, no apparent adverse anesthesia problems. No complications reported per nursing. ARELY SHULTZ DO Apr 14, 2023 13:29
--- NOTE | 2023-04-14 13:38 | Progress Note ---
Subjective Subjective/Events-last exam Patient doing well this AM. States that pain is well controlled. tolerating CLD. No flautus or BM. Review of Systems General: Fatigue Pulmonary: No Dyspnea, No Cough Cardiovascular: No: Chest Pain, Palpitations, Edema Gastrointestinal: Nausea, Abdominal Pain; No: Vomiting Neurological: Weakness, Incoordination Objective Exam Last Set of Vital Signs Vital Signs Date Time Temp Pulse Resp B/P (MAP) Pulse Ox O2 Delivery O2 Flow Rate FiO2 04/14/23 11:50 36.5 80 18 120/60 (80) 94 Nasal Cannula 2.00 2.00 Capillary Refill : I&O Intake and Output 04/14/23 00:00 Intake Total 1850 ml Output Total 640 ml Balance 1210 ml Intake Oral 650 ml IV Total 1200 ml Output Urine Total 640 ml Daily Weight Change No General: Alert, Oriented X3, No Acute Distress Lungs: Clear to Auscultation, Normal Air Movement Heart: Regular Rate, No Murmurs Abdomen: Soft, Other (incisional ttp, + Bowel sounds) Extremities: No Edema, No Tenderness/Swelling Neuro: Normal Speech Results/Procedures Lab Laboratory Tests 04/13/23 13:40: Mean Blood Glucose 177H, Hemoglobin A1c 7.8H 04/13/23 16:15: Glucometer 195H 04/14/23 05:30: White Blood Count 7.0, Red Blood Count 2.74L, Hemoglobin 6.9*L, Hematocrit 23L, Mean Corpuscular Volume 84, Mean Corpuscular Hemoglobin 25, Mean Corpuscular Hemoglobin Concent 30L, Red Cell Distribution Width 14.0, Platelet Count 267, Mean Platelet Volume 10.1, Sodium Level 133L, Potassium Level 4.2, Chloride Level 105, Carbon Dioxide Level 19L, Anion Gap 9, Blood Urea Nitrogen 11, Creatinine 1.09, Estimat Glomerular Filtration Rate 69, BUN/Creatinine Ratio 10, Glucose Level 125H, Calcium Level 8.7, Magnesium Level 1.6 04/14/23 10:26: Glucometer 196H Microbiology 04/13/23 MRSA Screen - Final, Complete MRSA not isolated Assessment/Plan Assessment/Plan Assessment & Plan Appreciate medical consult A/P Colon Ca s/p parital colon resection NIDDM HLD - Pain management per general surgery. Will check blood sugars every 6 hrs while patient is on CLD and treat with SSI. Patient extubated and on NC. Ok to transfer to 4th floor out of ICU. 04/14: Blood sugars have trended up, change to checking ACHS and treate with SSI PILLO DOSS MD Apr 14, 2023 13:38
[2023-04-14] MEDS: ACETAMINOPHEN 325 MG TABLET PO PRN (21:06)
[2023-04-15] MEDS: ACETAMINOPHEN 325 MG TABLET PO PRN (00:34)
[2023-04-15] MEDS ORDERED: PANTOPRAZOLE 40 MG (PROTONIX) VIAL ONE (01:12)
[2023-04-15] MEDS: ONDANSETRON 4 MG/2 ML (SDV) Z0FRAN IVP PRN (01:14)
[2023-04-15] MEDS ORDERED: PANTOPRAZOLE 40 MG (PROTONIX) VIAL IV ONE (01:15)
[2023-04-15] MEDS ORDERED: PROMETHAZINE INJ 25 MG/ML (PHENERGAN) AMP ONE (01:55)
[2023-04-15] MEDS ORDERED: PROMETHAZINE INJ 25 MG/ML (PHENERGAN) AMP IVP PRN (02:00)
[2023-04-15 03:00] VITALS: BP 133/75
[2023-04-15] MEDS: LACTATED RINGERS 1,000 ML IV SCH ×2 (03:42→14:15)
[2023-04-15 04:07] LABS: BASOPHILS % (AUTO) 0 % (0-10); EOSINOPHILS % (AUTO) 0 % (0-10); HEMATOCRIT 28 % (40-54); HEMOGLOBIN 8.5 g/dL (13.3-17.7); LYMPHOCYTES # (AUTO) 0.4 10^3/uL (1.0-4.0); LYMPHOCYTES % (AUTO) 4 % (12-44); MEAN CORPUSCULAR HEMOGLOBIN 26 pg (25-34); MEAN CORPUSCULAR HGB CONC 30 g/dL (32-36); MEAN CORPUSCULAR VOLUME 84 fL (80-99); MEAN PLATELET VOLUME 10.2 fL (9.0-12.2); MONOCYTES # (AUTO) 0.7 10^3/uL (0.0-1.0); MONOCYTES % (AUTO) 6 % (0-12); NEUTROPHILS # (AUTO) 9.5 10^3/uL (1.8-7.8); NEUTROPHILS % (AUTO) 89 % (42-75); PLATELET COUNT 311 10^3/uL (130-400); WHITE BLOOD COUNT 10.7 10^3/uL (4.3-11.0)
[2023-04-15 04:32] LABS: ALBUMIN 3.1 GM/DL (3.2-4.5); BILIRUBIN,TOTAL 0.4 MG/DL (0.1-1.0); CALCIUM 9.2 MG/DL (8.5-10.1); CREATININE SERUM 1.22 MG/DL (0.60-1.30); POTASSIUM 4.2 MMOL/L (3.6-5.0); TOTAL PROTEIN 6.2 GM/DL (6.4-8.2)
[2023-04-15 04:45] LABS: ELLIPT/OVALOCYTES SLIGHT; LYMPHOCYTES % (MANUAL) 2 %; MONOCYTES % (MANUAL) 5 %; NEUTROPHILS % (MANUAL) 93 %
[2023-04-15] MEDS: inSUlin ASPART 1 UNIT/0.01 ML (PER UNIT) SC SCH ×4 (06:34→20:54)
--- NOTE | 2023-04-15 06:39 | Diagnostic Imaging Report ---
REASON FOR EXAM: Abdominal distention. COMPARISON: 04/07/2023. TECHNIQUE: 2 views of the abdomen FINDINGS: Air-filled dilated loops of small bowel are seen throughout the abdomen and pelvis. No free air. Skin geeta are seen overlying the lower abdomen and pelvis. Scattered phleboliths are present. IMPRESSION: Air-filled dilated loops of small bowel throughout the abdomen and pelvis. Given the skin geeta, findings may represent postsurgical ileus. Small bowel obstruction could also have this appearance and continued close follow-up is recommended. Dictated by: Dictated on workstation # [id number]
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
--- NOTE | 2023-04-15 07:46 | Progress Note - Surgery ---
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 Pt is responsive, alert, and oriented. He was transferred to the ICU last night due to a high temperature (101 degrees) and bouts of emesis. The emesis last night appeared to be stool like (per nurse). Pt has not had bowel movements, but states that he has passed flatulence at least five times since yesterday. He states his abdomen is feeling better and that his pain is under better control. Patient also does have a cough, does not know when it st arted, but does not have any chest pains. He went on three walks yesterday with the staff which he says felt good. He is generally comfortable. He denies SOB depsite having low pO2 overnight (now on 6L PO2 improved). Review of Systems Pulmonary: No Dyspnea, No Cough, No Pleuritic Chest Pain Gastrointestinal: Nausea, Vomiting (had 350 mL of emesis that appeared stool like) Focused Exam Lactate Level 04/15/23 05:25: Lactic Acid Level 0.70 Respiratory: No Accessory Muscle Use, No Respiratory Distress Cardiovascular: Regular Rate, Rhythm Peripheral Pulses: 2+ Radial Pulses (R), 2+ Radial Pulses (L) Skin: normal color Lactic Acid Level Laboratory Tests Test 04/15/23 05:25 Lactic Acid Level 0.70 MMOL/L (0.50-2.00) Objective Exam Vital Signs Date Time Temp Pulse Resp B/P (MAP) Pulse Ox O2 Delivery O2 Flow Rate FiO2 04/15/23 07:00 99 04/15/23 07:00 100 21 118/62 (82) 95 Nasal Cannula 5.00 04/15/23 06:00 103 23 117/64 (81) 99 Nasal Cannula 5.00 04/15/23 05:45 107 23 131/63 (85) 91 Nasal Cannula 5.00 04/15/23 05:15 109 23 127/66 (86) 90 Nasal Cannula 5.00 04/15/23 05:07 Nasal Cannula 6.00 04/15/23 04:45 111 17 137/72 (93) 96 Nasal Cannula 5.00 04/15/23 04:30 115 28 128/76 (93) 93 Nasal Cannula 5.00 04/15/23 04:15 112 25 136/73 (94) 96 Nasal Cannula 5.00 04/15/23 04:13 120 04/15/23 04:00 113 25 147/80 (102) 96 Nasal Cannula 5.00 04/15/23 03:00 37.2 125 22 133/75 (94) 98 High Flow N/C 3.00 04/15/23 02:48 96 Nasal Cannula 4.00 04/15/23 01:28 37.7 04/15/23 01:10 37.7 04/15/23 00:34 38.4 04/14/23 23:34 38.2 105 18 154/68 (96) 91 High Flow N/C 4.00 04/14/23 22:00 38.0 04/14/23 21:06 38.0 04/14/23 19:35 High Flow N/C 2.00 04/14/23 19:10 38.3 96 18 128/68 (88) 94 High Flow N/C 2.00 04/14/23 18:52 Nasal Cannula 2.00 04/14/23 15:41 38.1 89 18 133/68 (89) 91 High Flow N/C 2.00 04/14/23 12:15 36.6 83 18 135/62 96 High Flow N/C 4.00 04/14/23 11:50 36.5 80 18 120/60 (80) 94 Nasal Cannula 2.00 2.00 04/14/23 10:24 36.7 80 18 115/57 96 Nasal Cannula 2.00 04/14/23 10:09 37.0 84 18 120/57 94 Nasal Cannula 2.00 04/14/23 08:00 High Flow N/C 4.00 I & O 04/15/23 07:00 Intake Total 1530 ml Output Total 1925 ml Balance -395 ml Capillary Refill : General Appearance: No Apparent Distress, WD/WN HEENT: PERRL/EOMI, Normal ENT Inspection Neck: Full Range of Motion, Non Tender, Supple Respiratory: Chest Non Tender, No Accessory Muscle Use, No Respiratory Distress Cardiovascular: Regular Rate, Rhythm, No JVD Peripheral Pulses: 2+ Radial Pulses (R), 2+ Radial Pulses (L) Gastrointestinal: soft, distended, tenderness (incision c/d/i) Extremity: Normal Capillary Refill, Non Tender, No Calf Tenderness Neurologic/Psychiatric: Alert, Normal 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, 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 Skin: Normal Color, Warm/Dry Lymphatic: No Adenopathy (cervical) Results Lab Laboratory Tests 04/14/23 10:26: Glucometer 196H 04/14/23 15:18: Glucometer 144H 04/14/23 21:01: Glucometer 150H 04/15/23 02:52: Glucometer 174H 04/15/23 04:00: White Blood Count 10.7, Red Blood Count 3.32L, Hemoglobin 8.5#L, Hematocrit 28L, Mean Corpuscular Volume 84, Mean Corpuscular Hemoglobin 26, Mean Corpuscular Hemoglobin Concent 30L, Red Cell Distribution Width 14.1, Platelet Count 311, Mean Platelet Volume 10.2, Immature Granulocyte % (Auto) 1, Neutrophils (%) (Auto) 89H, Lymphocytes (%) (Auto) 4L, Monocytes (%) (Auto) 6, Eosinophils (%) (Auto) 0, Basophils (%) (Auto) 0, Neutrophils # (Auto) 9.5H, Lymphocytes # (Auto) 0.4L, Monocytes # (Auto) 0.7, Eosinophils # (Auto) 0.0, Basophils # (Auto) 0.0, Immature Granulocyte # (Auto) 0.1, Neutrophils % (Manual) 93, Lymphocytes % (Manual) 2, Monocytes % (Manual) 5, Elliptocytes SLIGHT, Sodium Level 133L, Potassium Level 4.2, Chloride Level 102, Carbon Dioxide Level 20L, Anion Gap 11, Blood Urea Nitrogen 9, Creatinine 1.22, Estimat Glomerular Filtration Rate 61, BUN/Creatinine Ratio 7, Glucose Level 196H, Calcium Level 9.2, Corrected Calcium 9.9, Total Bilirubin 0.4, Aspartate Amino Transf (AST/SG OT) 12, Alanine Aminotransferase (ALT/SGPT) 9, Alkaline Phosphatase 60, Total Protein 6.2L, Albumin 3.1L 04/15/23 05:25: Lactic Acid Level 0.70 04/15/23 06:24: Glucometer 183H Microbiology 04/13/23 MRSA Screen - Final, Complete MRSA not isolated Assessment/Plan Assessment/Plan Assessment/Plan Right colon resection for adenocarcinoma of the colon Post-Op Ileus Anemia History of iron def anemia NG tube insertion Achetycholinesterase Inhibitor Continue to follow hemoglobin SCDs for dvt prophylaxis IV fluids Incentive spirometer Await bowel function to advance diet MURPHY PERALTA DO 04/15/23 0914: Subjective Subjective/Events-last exam Passing some flatus. Had emesis last night. Was transferred to ICU last night. Had fever. Feeling well this morning Pain controlled. Abdomen smaller. Hgb stable Objective Exam General Appearance: No Apparent Distress, WD/WN HEENT: PERRL/EOMI, Normal ENT Inspection Neck: Full Range of Motion, Non Tender Respiratory: Chest Non Tender, No Accessory Muscle Use, No Respiratory Distress Cardiovascular: Regular Rate, Rhythm, No JVD Gastrointestinal: soft, distended (less than yesterday), tenderness (incisional tenderness minimal incision c/d/i) Extremity: Normal Capillary Refill, Non Tender, No Calf Tenderness Neurologic/Psychiatric: Alert, Oriented x3, Normal Mood/Affect Skin: Normal Color, Warm/Dry Lymphatic: No Adenopathy (cervical) Assessment/Plan Assessment/Plan Assessment/Plan Right colon resection for adenocarcinoma of the colon Post-Op Ileus Anemia History of iron def anemia NG tube insertion if continue to have emesis. He is having flatus and abdomen less distended than yesterday a t this time. Continue to follow hemoglobin SCDs for dvt prophylaxis will hold off on lovenox, start tomorrow if as long as hgb stable IV fluids Incentive spirometer Await bowel function to advance diet Supervisory-Addendum Brief Verification & Attestation Participated in pt care: history, MDM, physical Personally performed: exam, history, MDM, supervision of care Care discussed with: Medical Student Procedures: n/a Results interpretation: Verified all documentation Verification and Attestation of Medical Student E/M Service A medical student performed and documented this service in my presence. I reviewed and verified all information documented by the medical student and made modifications to such information, when appropriate. I personally performed the physical exam and medical decision making. Murphy Peralta, Apr 15, 2023,09:14 TITI DAVIS Apr 15, 2023 07:46 MURPHY PERALTA DO Apr 15, 2023 09:14
[2023-04-15] MEDS ORDERED: NS IV 500 ML 500 ML IV PRN (08:00)
[2023-04-15] MEDS: PANTOPRAZOLE 40 MG (PROTONIX) VIAL IV SCH ×2 (08:13→20:24)
--- NOTE | 2023-04-15 08:29 | Tele-ICU Progress Note ---
Subjective Date Seen by a Provider: Apr 15, 2023 Time Seen by a Provider: 08:27 Subjective/Events-last exam (Tele-ICU Physician , consultation as per request of PCP Service provided via interactive audio and video telecommunications E-CARE system to a patient admitted to ICU bed in [facility]. Available chart/ vitals / labs / Images reviewed H&P is from ER notes Patient's information available about PMH, Shx, Fhx allergy reviewed in EMR. ROS as per chart and RN report Now in ICU, hemodynamically stable Video assessment done using teleICU camera, rest of exam as per RN Discussed with RN. 77 yo M underwent resection of right colon for Ca, this am had temp of WBC 10.7, lacate 0.7, Hb stable at 8.5, KUB today showed dilated small bowel loops, ileus Is passing gas and has bowel sounds Is awake and alert, better than yesterday, not needing much pain meds Some drop in SpO2 while sleeps Sepsis Event Evaluation Height, Weight, BMI Height: '" Weight: lbs. oz. kg; 29.83 BMI Method: Focused Exam Lactate Level 04/15/23 05:25: Lactic Acid Level 0.70 Lactic Acid Level Laboratory Tests Test 04/15/23 05:25 Lactic Acid Level 0.70 MMOL/L (0.50-2.00) Exam Exam Patient acknowledged, consented, and participated in this virtual visit which was conducted using real time audio/video Vital Signs Date Time Temp Pulse Resp B/P (MAP) Pulse Ox O2 Delivery O2 Flow Rate FiO2 04/15/23 08:00 98 20 127/64 (89) 91 Nasal Cannula 5.00 04/15/23 07:38 36.4 High Flow N/C 6.00 04/15/23 07:00 99 04/15/23 07:00 100 21 118/62 (82) 95 Nasal Cannula 5.00 04/15/23 06:00 103 23 117/64 (81) 99 Nasal Cannula 5.00 04/15/23 05:45 107 23 131/63 (85) 91 Nasal Cannula 5.00 04/15/23 05:15 109 23 127/66 (86) 90 Nasal Cannula 5.00 04/15/23 05:07 Nasal Cannula 6.00 04/15/23 04:45 111 17 137/72 (93) 96 Nasal Cannula 5.00 04/15/23 04:30 115 28 128/76 (93) 93 Nasal Cannula 5.00 04/15/23 04:15 112 25 136/73 (94) 96 Nasal Cannula 5.00 04/15/23 04:13 120 04/15/23 04:00 113 25 147/80 (102) 96 Nasal Cannula 5.00 04/15/23 03:00 37.2 125 22 133/75 (94) 98 High Flow N/C 3.00 04/15/23 02:48 96 Nasal Cannula 4.00 04/15/23 01:28 37.7 04/15/23 01:10 37.7 04/15/23 00:34 38.4 04/14/23 23:34 38.2 105 18 154/68 (96) 91 High Flow N/C 4.00 04/14/23 22:00 38.0 04/14/23 21:06 38.0 04/14/23 19:35 High Flow N/C 2.00 04/14/23 19:10 38.3 96 18 128/68 (88) 94 High Flow N/C 2.00 04/14/23 18:52 Nasal Cannula 2.00 04/14/23 15:41 38.1 89 18 133/68 (89) 91 High Flow N/C 2.00 04/14/23 12:15 36.6 83 18 135/62 96 High Flow N/C 4.00 04/14/23 11:50 36.5 80 18 120/60 (80) 94 Nasal Cannula 2.00 2.00 04/14/23 10:24 36.7 80 18 115/57 96 Nasal Cannula 2.00 04/14/23 10:09 37.0 84 18 120/57 94 Nasal Cannula 2.00 I & O 04/15/23 07:00 Intake Total 1530 ml Output Total 1925 ml Balance -395 ml Height & Weight Height: '" Weight: lbs. oz. kg; 29.83 BMI Method: General Appearance: No Apparent Distress, WD/WN HEENT: PERRL/EOMI, Normal ENT Inspection Neck: Full Range of Motion, Non Tender, Supple Respiratory: Chest Non Tender, No Accessory Muscle Use, No Respiratory Distress, Decreased Breath Sounds Cardiovascular: Regular Rate, Rhythm, No JVD Peripheral Pulses: 2+ Radial Pulses (R), 2+ Radial Pulses (L) Gastrointestinal: normal bowel sounds, non tender, soft, distended, tenderness (incision c/d/i) Extremity: Normal Capillary Refill, Non Tender, No Calf Tenderness, Other (less distended than yesterday, has + BS, passing gas) Neurologic/Psychiatric: Alert, Oriented x3, 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
--- NOTE | 2023-04-15 09:09 | Progress Note ---
Standard Progress Note Progress Notes/Assess & Plan Date Seen by a Provider: Apr 15, 2023 Focused Exam Lactate Level 04/15/23 05:25: Lactic Acid Level 0.70 04/15/23 10:36: Lactic Acid Level 0.64 Lactic Acid Level Laboratory Tests Test 04/15/23 10:36 Lactic Acid Level 0.64 MMOL/L (0.50-2.00) SANDER BOWENS MD Apr 15, 2023 09:09
--- NOTE | 2023-04-15 09:13 | Progress Note ---
SANDER BIRMINGHAM MD 04/15/23 0913: Subjective HPI/CC On Admission Date Seen by Provider: Apr 15, 2023 Time Seen by Provider: 10:[address] Peralta for medical management. Patient is a 77-year-old male who underwent extended right colon resection today. He underwent an EGD and colonoscopy on 03/17 for iron-deficiency anemia and was found to have masses at the cecum and hepatic flexure. Biopsies were taken and further workup revealed this to be colon cancer, leading to the extended right colon resection. Patient is seen sleeping comfortably in bed, easily aroused. He reports that he is having some pain currently but that it is well-controlled with the pain medication. He reports no other complaints. Incisions are clean and dressed. Patient has no other complaints. Subjective/Events-last exam Patient was transferred to the ICU overnight due to tachycardia, elevated temperature, persistent vomiting with stool like appearance. Patient has had no further episodes of vomiting since transfer to the ICU this morning. He denies any nausea. Is having some fatigue but otherwise feels well. Review of Systems General: Fatigue HEENT: No Head Aches Pulmonary: No Dyspnea Cardiovascular: No: Chest Pain, Palpitations Gastrointestinal: Vomiting; No: Nausea, Diarrhea, Constipation Genitourinary: No Dysuria Focused Exam Lactate Level 04/15/23 05:25: Lactic Acid Level 0.70 04/15/23 10:36: Lactic Acid Level 0.64 Lactic Acid Level Laboratory Tests Test 04/15/23 10:36 Lactic Acid Level 0.64 MMOL/L (0.50-2.00) Objective Exam Vital Signs Vital Signs Date Time Temp Pulse Resp B/P (MAP) Pulse Ox O2 Delivery O2 Flow Rate FiO2 04/15/23 12:04 Nasal Cannula 04/15/23 12:00 92 18 121/59 (82) 94 5.00 04/15/23 11:29 36.8 Capillary Refill : General Appearance: No Apparent Distress HEENT: PERRL/EOMI, Pharynx Normal Neck: Full Range of Motion Respiratory: Chest Non Tender, Lungs Clear, Normal Breath Sounds, No Accessory Muscle Use, No Respiratory Distress Cardiovascular: Regular Rate, Rhythm, No Edema, No Murmur Gastrointestinal: Normal Bowel Sounds, Non Tender, Soft Extremity: Normal Capillary Refill Neurologic/Psychiatric: Alert, Oriented x3 Skin: Warm/Dry Results/Procedures Lab Laboratory Tests 04/15/23 04:00 Patient resulted labs reviewed. Assessment/Plan Assessment and Plan Assess & Plan/Chief Complaint 77-year-old male status post partial colon resection secondary to colon cancer. Diagnosis/Problems Diagnosis/Problems (1) Cancer of right colon Status: Acute Assessment & Plan: Status post partial colon resection by Dr. Peralta Pain management and diet advancement per primary team Abdominal exam not concerning today. Agree with Dr. Peralta about holding off on NG tube and monitoring in the ICU for 1 day. (2) Iron deficiency anemia Status: Acute Assessment & Plan: Status post 1 unit PRBC Improved hemoglobin to 8.5 today No overt signs of bleeding Continue to monitor with daily CBC Qualifiers: Qualified Codes: D50.9 - Iron deficiency anemia, unspecified (3) Diabetes mellitus Status: Chronic Assessment & Plan: Continue sliding scale insulin Qualifiers: Qualified Codes: E11.9 - Type 2 diabetes mellitus without complications (4) Oxygen desaturation Status: Acute Assessment & Plan: Patient on 5 L of nasal cannula, no oxygen requirement at home Wean as tolerated, keep saturations above 92% (5) Hyponatremia Status: Acute Assessment & Plan: Sodium 133 today, likely dilutional will continue to monitor for further decrease with daily CMP/BMP LISA EATON DO 04/15/23 1557: Assessment/Plan Assessment and Plan Assess & Plan/Chief Complaint Rounded with Dr [place] and interviewed the patient and discussed case in- depth with results review and med management. SANDER BIRMINGHAM MD Apr 15, 2023 09:13 LISA EATON DO Apr 15, 2023 15:57
[2023-04-15] MEDS: MAGNESIUM 1 GM/100 ML IVPB 100 ML IV SCH ×4 (10:40→14:12)
[2023-04-16] MEDS: LACTATED RINGERS 1,000 ML IV SCH ×2 (01:22→15:19)
[2023-04-16 04:46] LABS: BASOPHILS % (AUTO) 0 % (0-10); EOSINOPHILS # (AUTO) 0.1 10^3/uL (0.0-0.3); EOSINOPHILS % (AUTO) 1 % (0-10); HEMATOCRIT 26 % (40-54); HEMOGLOBIN 7.7 g/dL (13.3-17.7); LYMPHOCYTES # (AUTO) 0.9 10^3/uL (1.0-4.0); LYMPHOCYTES % (AUTO) 11 % (12-44); MEAN CORPUSCULAR HEMOGLOBIN 25 pg (25-34); MEAN CORPUSCULAR HGB CONC 30 g/dL (32-36); MEAN CORPUSCULAR VOLUME 85 fL (80-99); MEAN PLATELET VOLUME 10.5 fL (9.0-12.2); MONOCYTES # (AUTO) 0.5 10^3/uL (0.0-1.0); MONOCYTES % (AUTO) 7 % (0-12); NEUTROPHILS # (AUTO) 6.1 10^3/uL (1.8-7.8); NEUTROPHILS % (AUTO) 80 % (42-75); PLATELET COUNT 276 10^3/uL (130-400); WHITE BLOOD COUNT 7.6 10^3/uL (4.3-11.0)
[2023-04-16 05:22] LABS: ALBUMIN 2.7 GM/DL (3.2-4.5); BILIRUBIN,TOTAL 0.3 MG/DL (0.1-1.0); CREATININE SERUM 1.04 MG/DL (0.60-1.30); MAGNESIUM 2.2 MG/DL (1.6-2.4); POTASSIUM 4.1 MMOL/L (3.6-5.0); TOTAL PROTEIN 5.4 GM/DL (6.4-8.2)
[2023-04-16] MEDS: MAGNESIUM 1 GM/100 ML IVPB 100 ML IV SCH (05:32)
[2023-04-16] MEDS: POTASSIUM CL 10MEQ/50ML IVPB 50 ML IV SCH (05:32)
[2023-04-16] MEDS: POTASSIUM CHLORIDE 20 MEQ TABLET PO SCH (05:33)
[2023-04-16] MEDS: inSUlin ASPART 1 UNIT/0.01 ML (PER UNIT) SC SCH ×4 (05:33→21:07)
--- NOTE | 2023-04-16 07:08 | Progress Note - Hospitalist ---
Subjective HPI/CC On Admission Date Seen by Provider: Apr 16, 2023 Time Seen by Provider: 11:[address] Peralta for medical management. Patient is a 77-year-old male who underwent extended right colon resection today. He underwent an EGD and colonoscopy on 03/17 for iron-deficiency anemia and was found to have masses at the cecum and hepatic flexure. Biopsies were taken and further workup revealed this to be colon cancer, leading to the extended right colon resection. Patient is seen sleeping comfortably in bed, easily aroused. He reports that he is having some pain currently but that it is well-controlled with the pain medication. He reports no other complaints. Incisions are clean and dressed. Patient has no other complaints. Subjective/Events-last exam Patient doing about the same today Had an episode of atrial fibrillation confirmed on telemetry so started Eliquis and consulted cardiology but now converted to normal sinus rhythm Reports he does not have any heart problems Updated family at the bedside Hemoglobin 7.7 and checked iron and ferritin so we will start iron supplement and supplement and check B12 level Oral anticoagulation started due to no report of bleeding risk per surgery Review of Systems General: Fatigue, Malaise Focused Exam Lactate Level 04/15/23 05:25: Lactic Acid Level 0.70 04/15/23 10:36: Lactic Acid Level 0.64 Objective Exam Vital Signs Vital Signs Date Time Temp Pulse Resp B/P (MAP) Pulse Ox O2 Delivery O2 Flow Rate FiO2 04/16/23 15:00 80 18 107/54 (72) 97 OxyMask 4.00 04/16/23 12:00 36.3 Capillary Refill : General Appearance: No Apparent Distress, WD/WN, Chronically ill Respiratory: Lungs Clear, Normal Breath Sounds Cardiovascular: Regular Rate, Rhythm Neurologic/Psychiatric: Alert, Oriented x3 Results/Procedures Lab Laboratory Tests 04/16/23 04:28 Patient resulted labs reviewed. Assessment/Plan Assessment and Plan Assess & Plan/Chief Complaint Assessment: Status post partial colon resection now with postop ileus Episode of atrial fibrillation placed on oral anticoagulation Diabetes Anemia iron deficient so giving iron infusions Plan: Supportive care Iron infusion Cardiology consult Critical Care Critically Ill Patient LISA EATON DO Apr 16, 2023 07:08
--- NOTE | 2023-04-16 08:28 | Progress Note - Surgery ---
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 Pt is responsive, alert, and oriented. Patient says he is feeling much better, pain has been under control, and feels like it is a 3/10 on the pain scale. Patient says he feels a little discomfort when he coughs and that is when he feels the most pain, but otherwise the pain has been minimal. Patient says he has had no nausea since yesterday and no emesis. Pt says he has been burping several times this morning and yesterday and also states that he has passed flatulence several times this morning. He went on two walks yesterday with the staff and says he was not feeling any discomfort moving. He is generally comfortable. He is feeling a little hungry, and a little tired because he didn't sleep well. Review of Systems Pulmonary: Cough (light dry cough at times) Gastrointestinal: Abdominal Pain (3/10 abdominal pain) Neurological: No: Weakness, Numbness, Incoordination, Change in speech, Confusi on, Seizures, Other Focused Exam Sepsis Stage: Ruled Out Lactate Level 04/15/23 05:25: Lactic Acid Level 0.70 04/15/23 10:36: Lactic Acid Level 0.64 Respiratory: Chest Non Tender, No Accessory Muscle Use, No Respiratory Distress Cardiovascular: Regular Rate, Rhythm, No Edema, Normal Peripheral Pulses Peripheral Pulses: 2+ Radial Pulses (R), 2+ Radial Pulses (L) Skin: normal color Objective Exam Vital Signs Date Time Temp Pulse Resp B/P (MAP) Pulse Ox O2 Delivery O2 Flow Rate FiO2 04/16/23 08:00 92 20 119/63 (83) 91 OxyMask 4.00 04/16/23 08:00 36.4 04/16/23 07:00 97 04/16/23 07:00 95 21 117/71 (88) 96 OxyMask 4.00 04/16/23 06:00 101 20 97/52 (67) 97 OxyMask 4.00 04/16/23 05:00 96 22 120/57 (78) 94 OxyMask 4.00 04/16/23 04:10 36.4 OxyMask 4.00 04/16/23 04:00 100 18 114/60 (78) 97 Nasal Cannula 4.00 04/16/23 04:00 OxyMask 4.00 04/16/23 03:00 96 20 124/61 (82) 94 Nasal Cannula 4.00 04/16/23 02:00 97 19 118/86 (97) 95 Nasal Cannula 4.00 04/16/23 01:00 94 04/16/23 01:00 93 17 137/69 (91) 95 Nasal Cannula 4.00 04/16/23 00:17 36.2 04/16/23 00:00 93 19 122/62 (82) 100 Nasal Cannula 4.00 04/15/23 23:59 High Flow N/C 4.00 04/15/23 23:00 101 10 120/60 (80) 100 Nasal Cannula 4.00 04/15/23 22:00 109 19 113/61 (78) 99 Nasal Cannula 4.00 04/15/23 21:00 95 19 119/63 (81) 100 Nasal Cannula 4.00 04/15/23 20:00 High Flow N/C 4.00 04/15/23 20:00 High Flow N/C 4.00 04/15/23 20:00 96 20 116/59 (78) 100 Nasal Cannula 5.00 04/15/23 20:00 Nasal Cannula 4.00 04/15/23 19:53 36.1 04/15/23 19:00 97 04/15/23 19:00 94 20 116/55 (75) 100 Nasal Cannula 5.00 04/15/23 18:37 100 Nasal Cannula 4.00 04/15/23 18:36 102 30 166/110 (128) 98 Nasal Cannula 5.00 04/15/23 17:00 86 19 130/61 (84) 99 Nasal Cannula 5.00 04/15/23 16:00 High Flow N/C 6.00 04/15/23 16:00 87 8 125/64 (84) 100 Nasal Cannula 5.00 04/15/23 15:57 36.4 04/15/23 15:56 36.4 04/15/23 15:00 90 7 128/62 (73) 100 Nasal Cannula 5.00 04/15/23 14:00 88 17 122/65 (87) 95 Nasal Cannula 5.00 04/15/23 13:00 83 18 123/63 (81) 97 Nasal Cannula 5.00 04/15/23 12:48 89 04/15/23 12:04 Nasal Cannula 04/15/23 12:00 High Flow N/C 6.00 04/15/23 12:00 92 18 121/59 (82) 94 Nasal Cannula 5.00 04/15/23 11:29 36.8 High Flow N/C 6.00 04/15/23 11:00 90 20 136/64 (95) 100 Nasal Cannula 5.00 04/15/23 10:00 93 20 109/56 (74) 92 Nasal Cannula 5.00 04/15/23 09:00 101 25 115/65 (81) 97 Nasal Cannula 5.00 I & O 04/16/23 07:00 Intake Total 720 ml Output Total 1600 ml Balance -880 ml Capillary Refill : General Appearance: No Apparent Distress HEENT: PERRL/EOMI, Pharynx Normal Neck: Full Range of Motion Respiratory: Chest Non Tender, Lungs Clear, Normal Breath Sounds, No Accessory Muscle Use, No Respiratory Distress Cardiovascular: Regular Rate, Rhythm, No Edema, No Murmur Peripheral Pulses: 2+ Radial Pulses (R), 2+ Radial Pulses (L) Gastrointestinal: normal bowel sounds, non tender, soft, distended, tenderness (incision c/d/i) Extremity: Normal Capillary Refill Neurologic/Psychiatric: Alert, Oriented x3 Skin: Warm/Dry Lymphatic: No Adenopathy (cervical) Results Lab Laboratory Tests 04/15/23 10:27: Glucometer 151H 04/15/23 10:36: Lactic Acid Level 0.64 04/15/23 15:35: Glucometer 141H 04/15/23 20:42: Glucometer 144H 04/16/23 04:28: White Blood Count 7.6, Red Blood Count 3.03L, Hemoglobin 7.7L, Hematocrit 26L, Mean Corpuscular Volume 85, Mean Corpuscular Hemoglobin 25, Mean Corpuscular Hemoglobin Concent 30L, Red Cell Distribution Width 14.1, Platelet Count 276, Mean Platelet Volume 10.5, Immature Granulocyte % (Auto) 0, Neutrophils (%) (Auto) 80H, Lymphocytes (%) (Auto) 11L, Monocytes (%) (Auto) 7, Eosinophils (%) (Auto) 1, Basophils (%) (Auto) 0, Neutrophils # (Auto) 6.1, Lymphocytes # (Auto) 0.9L, Monocytes # (Auto) 0.5, Eosinophils # (Auto) 0.1, Basophils # (Auto) 0.0, Immature Granulocyte # (Auto) 0.0, Sodium Level 137, Potassium Level 4.1, Chloride Level 105, Carbon Dioxide Level 23, Anion Gap 9, Blood Urea Nitrogen 11, Creatinine 1.04, Estimat Glomerular Filtration Rate 73, BUN/Creatinine Ratio 11, Glucose Level 126H, Calcium Level 9.0, Corrected Calcium 10.0, Phosphorus Level 2.0L, Magnesium Level 2.2, Total Bilirubin 0.3, Aspartate Amino Transf (AST/SGOT) 12, Alanine Aminotransferase (ALT/SGPT) 7, Alkaline Phosphatase 57, Total Protein 5.4L, Albumin 2.7L Microbiology 04/15/23 MRSA Screen - Final, Complete MRSA not isolated Assessment/Plan Assessment/Plan Assessment/Plan Right colon resection for adenocarcinoma of the colon Post-Op Ileus Anemia History of iron def anemia Continue to follow hemoglobin SCDs for dvt prophylaxis IV fluids Continue incentive spirometer Continue to encourage patient movement Advance diet and monitor patient Prepare patient for discharge tomorrow MURPHY PERALTA DO 04/16/23 1017: Subjective Subjective/Events-last exam Pain controlled. Tolerating ice chips. Having some flatus. Hgb 7.7. Went into afib this am. Denies n/v fever sweats chills shortness of breath or chest pain. Objective Exam General Appearance: No Apparent Distress, WD/WN HEENT: PERRL/EOMI, Normal ENT Inspection Neck: Full Range of Motion, Supple Respiratory: Chest Non Tender, No Accessory Muscle Use, No Respiratory Distress Cardiovascular: No Edema, Irregularly Irregular Gastrointestinal: soft, distended (slight), tenderness (minimal pain at incision c/d/i) Extremity: Normal Capillary Refill, Non Tender Neurologic/Psychiatric: Alert, Oriented x3 Skin: Normal Color, Warm/Dry Lymphatic: No Adenopathy (cervical) Assessment/Plan Assessment/Plan Assessment/Plan Right colon resection for adenocarcinoma of the colon Post-Op Ileus Anemia History of iron def anemia Afib Continue to follow hemoglobin SCDs for dvt prophylaxis and afib - starting anticoagulation IV fluids Continue incentive spirometer Continue to encourage patient movement Clears and will advance if continues to have bowel function and no n/v Supervisory-Addendum Brief Verification & Attestation Participated in pt care: history, MDM, physical Personally performed: exam, history, MDM, supervision of care Care discussed with: Medical Student Procedures: n/a Results interpretation: Verified all documentation Verification and Attestation of Medical Student E/M Service A medical student performed and documented this service in my presence. I reviewed and verified all information documented by the medical student and made modifications to such information, when appropriate. I personally performed the physical exam and medical decision making. Murphy Peralta, Apr 16, 2023,10:17 TITI DAVIS Apr 16, 2023 08:28 MURPHY PERALTA DO Apr 16, 2023 10:17
--- NOTE | 2023-04-16 08:32 | Tele-ICU Progress Note ---
Progress Note video rounds completed 77 y/o male with colon cancer and iron deficiency anemai Underwent lap extended right hemicolectomy. Transferred to ICU for post op tachycardia. Overall condition has improved. Tachycardia improved WBC normal Abd less distended, passing flatus PE: lying in bed comfortably on O2 Pulse 96-99 NSR BP: 115/64 Pulse Ox 95% WBC 7.6 Hgb: 7.7 and stable IMP: s/p R hemicolectomy tachycardia improving Overall hemodynamically normal I am reviewing this patient remotely and am unable to directly exam the patient. Review is based upon video, auditory and communication with nursing staff and review of medical records, labs and xrays Time spent in review 20 minutes Focused Exam Lactate Level 04/15/23 05:25: Lactic Acid Level 0.70 04/15/23 10:36: Lactic Acid Level 0.64 Height, Weight, BMI Height: '" Weight: lbs. oz. kg; 29.83 BMI Method: Labs Laboratory Tests 04/16/23 04:28 Results Results/Procedures Labs Laboratory Tests 04/15/23 04:00 04/16/23 04:28 Patient resulted labs reviewed. Results Labs Labs Laboratory Tests 04/15/23 10:27: Glucometer 151H 04/15/23 10:36: Lactic Acid Level 0.64 04/15/23 15:35: Glucometer 141H 04/15/23 20:42: Glucometer 144H 04/16/23 04:28: White Blood Count 7.6, Red Blood Count 3.03L, Hemoglobin 7.7L, Hematocrit 26L, Mean Corpuscular Volume 85, Mean Corpuscular Hemoglobin 25, Mean Corpuscular Hemoglobin Concent 30L, Red Cell Distribution Width 14.1, Platelet Count 276, M petra Platelet Volume 10.5, Immature Granulocyte % (Auto) 0, Neutrophils (%) (Auto) 80H, Lymphocytes (%) (Auto) 11L, Monocytes (%) (Auto) 7, Eosinophils (%) (Auto) 1, Basophils (%) (Auto) 0, Neutrophils # (Auto) 6.1, Lymphocytes # (Auto) 0.9L, Monocytes # (Auto) 0.5, Eosinophils # (Auto) 0.1, Basophils # (Auto) 0.0, Immature Granulocyte # (Auto) 0.0, Sodium Level 137, Potassium Level 4.1, Chloride Level 105, Carbon Dioxide Level 23, Anion Gap 9, Blood Urea Nitrogen 11, Creatinine 1.04, Estimat Glomerular Filtration Rate 73, BUN/Creatinine Ratio 11, Glucose Level 126H, Calcium Level 9.0, Corrected Calcium 10.0, Phosphorus Level 2.0L, Magnesium Level 2.2, Total Bilirubin 0.3, Aspartate Amino Transf (AST/SGOT) 12, Alanine Aminotransferase (ALT/SGPT) 7, Alkaline Phosphatase 57, T otal Protein 5.4L, Albumin 2.7L Microbiology 04/15/23 MRSA Screen - Final, Complete MRSA not isolated ISA ALVAREZ MD Apr 16, 2023 08:32
[2023-04-16] MEDS: PANTOPRAZOLE 40 MG (PROTONIX) VIAL IV SCH ×2 (08:44→21:07)
[2023-04-16] MEDS ORDERED: ENOXAPARIN 40 MG/0.4 ML SYRINGE SC SCH (10:00)
[2023-04-16 10:19] VITALS: BP 89/67
[2023-04-16] MEDS: APIXABAN 5 MG TABLET PO SCH ×2 (10:24→21:07)
[2023-04-16] MEDS: dilTIAZem DRIP PRE-MIX 125 ML IV SCH (10:26)
--- NOTE | 2023-04-16 12:12 | Consultation-Cardiology ---
HPI-Cardiology Cardiology Consultation: Date of Consultation 04/16/23 Time Seen by a Provider: 11:20 Date of Admission Attending Physician Vaibhav Ni MD Admitting Physician Admitting Physician: Murphy Rdz DO Attending Physician: Murphy Rdz DO Consulting Physician CALEB PHILLIP MD, MA, FACP, FACC, FSCAI, CCDS Physician requesting consult: Dr Breaux HPI: Chief Complaint: Reason for Card consult: New onset A Fib 77 yo man s/p laparoscope-assisted right colon resection for adenocarcinoma of the colon on 04/13/23 who has had post-op ileus and anemia and who today went into A Fib with RVR. We were then asked to see him. He denies cp or palp or syncope or shortness of breath. Has some gen malaise and weakness. Does not report focal weakness. No n/v/d today. Has been allowed clear liquids and oral meds. Review of Systems-Cardiology Review of Systems Constitutional: malaise; No weight loss, No weight gain Eyes: No vision change Ears/Nose/Throat: No ear discharge, No nasal drainage, No recent hearing loss Respiratory: As described under HPI Cardiovascular: As described under HPI Gastrointestinal: As described under HPI Genitourinary: No dysuria, No hematuria, No urine frequency changes Musculoskeletal: No back pain, No joint pain Skin: No rash, No ulcerations Psychiatric/Neurological: No seizure, No focal weakness, No syncope Hematologic: No bleeding abnormalities [id number] Hx Patient Social History Smoking Status: Former Smoker Alcohol Use?: No Pt feels they are or have been: No Past Medical History PMH As described under Assessment. Family Medical History Family Medical History: He does not report fam h/o early CAD or SCD Allergies and Home Medications Allergies Coded Allergies: No Known Drug Allergies (Unverified , 04/13/23) Patient Home Medication List Home Medication List Reviewed: Yes Acetaminophen (Tylenol) 325 Mg Tablet, 650 MG PO BID, (Reported) Entered as Reported by: AGNIESZKA CHIN on 03/09/231550 Last Action: Reviewed Doxazosin Mesylate (Doxazosin Mesylate) 2 Mg Tablet, 2 MG PO DAILY, (Reported) Entered as Reported by: AGNIESZKA CHIN on 03/09/231550 Last Action: Reviewed Ferrous Sulfate (Ferrous Sulfate) 324 Mg (65 Mg Iron) Tablet.dr, 324 MG PO BID, (Reported) Entered as Reported by: AGNIESZKA CHIN on 03/09/231550 Last Action: Reviewed Glimepiride (Glimepiride) 4 Mg Tablet, 4 MG PO DAILY, (Reported) Entered as Reported by: AGNIESZKA CHIN on 03/09/231550 Last Action: Reviewed Lisinopril (Lisinopril) 5 Mg Tablet, 5 MG PO DAILY, (Reported) Entered as Reported by: AGNIESZKA CHIN on 03/09/231550 Last Action: Reviewed Lovastatin (Lovastatin) 20 Mg Tablet, 20 MG PO HS, (Reported) Entered as Reported by: AGNIESZKA CHIN on 03/09/231550 Last Action: Reviewed Metformin HCl (Metformin HCl ER) 750 Mg Tab.er.24h, 750 MG PO DAILY, (Reported) Entered as Reported by: AGNIESZKA CHIN on 03/09/231550 Last Action: Reviewed Pantoprazole Sodium (Protonix) 40 Mg Tablet.dr, 40 MG PO DAILY Prescribed by: MURPHY RDZ on 03/17/231530 Last Action: Reviewed Discontinued Medications Cholecalciferol (Vitamin D3) (Vitamin D3) 125 Mcg (5000 Unit) Tablet, 125 MCG PO DAILY, (Reported) Discontinued Reason: No Longer Taking Entered as Reported by: AGNIESZKA CHIN on 03/09/231550 Krill Oil (Krill Oil) 500 Mg Capsule, 500 MG PO DAILY, (Reported) Discontinued Reason: No Longer Taking Entered as Reported by: AGNIESZKA CHIN on 03/09/231550 Physical Exam-Cardiology Physical Exam Vital Signs/I&O 04/16/23 04/16/23 04/16/23 04/16/23 00:17 01:00 01:00 02:00 Temp 36.2 Pulse 93 94 97 Resp 17 19 B/P (MAP) 137/69 (91) 118/86 (97) Pulse Ox 95 95 O2 Delivery Nasal Cannula Nasal Cannula O2 Flow Rate 4.00 4.00 04/16/23 04/16/23 04/16/23 04/16/23 03:00 04:00 04:00 04:10 Temp 36.4 Pulse 96 100 Resp 20 18 B/P (MAP) 124/61 (82) 114/60 (78) Pulse Ox 94 97 O2 Delivery Nasal Cannula OxyMask Nasal Cannula OxyMask O2 Flow Rate 4.00 4.00 4.00 4.00 04/16/23 04/16/23 04/16/23 04/16/23 05:00 06:00 07:00 07:00 Pulse 96 101 95 97 Resp 22 20 21 B/P (MAP) 120/57 (78) 97/52 (67) 117/71 (88) Pulse Ox 94 97 96 O2 Delivery OxyMask OxyMask OxyMask O2 Flow Rate 4.00 4.00 4.00 04/16/23 04/16/23 04/16/23 04/16/23 08:00 08:00 09:00 10:00 Temp 36.4 Pulse 92 126 120 Resp 20 22 30 B/P (MAP) 119/63 (83) 89/67 (77) 123/54 (59) Pulse Ox 91 96 97 O2 Delivery OxyMask OxyMask OxyMask O2 Flow Rate 4.00 4.00 4.00 04/16/23 04/16/23 04/16/23 10:19 10:26 11:00 Temp 36.4 Pulse 126 131 112 Resp 17 B/P (MAP) 98/49 114/83 (87) Pulse Ox 96 99 O2 Delivery OxyMask O2 Flow Rate 4.00 04/16/23 00:00 Intake Total 520 ml Output Total 1000 ml Balance -480 ml Capillary Refill : Constitutional: AAO x 3, well-developed, well-nourished HEENT: EOMI, hearing is well preserved; No xanthelasmas are seen Neck: carotid pulses are 2 + bilaterally, with good upstrokes Respiratory: No accessory muscle use; chest expansion is symmetric, chest is bilaterally symmetric, other (good, bilateral air entry) Cardiovascular: regular rate-rhythm, S1 and S2, systolic murmur (soft BINTA at card base) Gastrointestinal: No tender; soft; No guarding, No rebound; audible bowel sounds Extremities: No clubbing, No cyanosis, No significant edema Neurologic/Psychiatric: oriented x 3, other (moves all limbs equally) Skin: normal color, warm/dry; No cyanosis, No cool, No diaphoresis, No rash on exposed areas, No ulcerations on exposed areas Data Review Labs Laboratory Tests 04/15/23 15:35: Glucometer 141H 04/15/23 20:42: Glucometer 144H 04/16/23 04:28: White Blood Count 7.6, Red Blood Count 3.03L, Hemoglobin 7.7L, Hematocrit 26L, Mean Corpuscular Volume 85, Mean Corpuscular Hemoglobin 25, Mean Corpuscular Hemoglobin Concent 30L, Red Cell Distribution Width 14.1, Platelet Count 276, Mean Platelet Volume 10.5, Immature Granulocyte % (Auto) 0, Neutrophils (%) (Auto) 80H, Lymphocytes (%) (Auto) 11L, Monocytes (%) (Auto) 7, Eosinophils (%) (Auto) 1, Basophils (%) (Auto) 0, Neutrophils # (Auto) 6.1, Lymphocytes # (Auto) 0.9L, Monocytes # (Auto) 0.5, Eosinophils # (Auto) 0.1, Basophils # (Auto) 0.0, Immature Granulocyte # (Auto) 0.0, Sodium Level 137, Potassium Level 4.1, Chloride Level 105, Carbon Dioxide Level 23, Anion Gap 9, Blood Urea Nitrogen 11, Creatinine 1.04, Estimat Glomerular Filtration Rate 73, BUN/Creatinine Ratio 11, Glucose Level 126H, Calcium Level 9.0, Corrected Calcium 10.0, Phosphorus Level 2.0L, Magnesium Level 2.2, Total Bilirubin 0.3, Aspartate Amino Transf (AST/SGOT) 12, Alanine Aminotransferase (ALT/SGPT) 7, Alkaline Phosphatase 57, Total Protein 5.4L, Albumin 2.7L 04/16/23 10:39: Glucometer 134H Microbiology 04/15/23 MRSA Screen - Final, Complete MRSA not isolated Laboratory Tests 04/15/23 04:00 04/16/23 04:28 A/P-Cardiology Assessment/Admission Diagnosis PAF, first documented on 04/16/23 S/p laparoscope-assisted right colon resection for adenocarcinoma of the colon on 04/13/23 - Post-Op Ileus, resolving, managed the Surg Svce - Post-Op Anemia, managed by the Med Svce [place] h/o sleep apnea Discussion and Recomendations * Diltiazem for rate control * Apixaban for stroke prophylaxis * Consider blood transfusion to restore hemoglobin above 8 * Echo * Monitor labs and maintain electrolyte and acid-base balance * I spoke with him and answered CV-related questions CALEB PHILLIP MD FACP FAC CCDS Apr 16, 2023 12:11
[2023-04-16] MEDS: dilTIAZem ER 240 MG CAPSULE PO SCH (12:16)
[2023-04-16] MEDS ORDERED: CYANOCOBALAMIN 1000 MCG/ML 1 ML VIAL IM ONE (16:30)
[2023-04-16] MEDS: IRON SUCROSE 200 MG/10 ML VIAL IV SCH (17:19)
[2023-04-17 05:04] LABS: BASOPHILS % (AUTO) 0 % (0-10); EOSINOPHILS # (AUTO) 0.2 10^3/uL (0.0-0.3); EOSINOPHILS % (AUTO) 4 % (0-10); HEMATOCRIT 25 % (40-54); HEMOGLOBIN 7.5 g/dL (13.3-17.7); LYMPHOCYTES % (AUTO) 16 % (12-44); MEAN CORPUSCULAR HEMOGLOBIN 26 pg (25-34); MEAN CORPUSCULAR HGB CONC 30 g/dL (32-36); MEAN CORPUSCULAR VOLUME 85 fL (80-99); MEAN PLATELET VOLUME 10.2 fL (9.0-12.2); MONOCYTES # (AUTO) 0.6 10^3/uL (0.0-1.0); MONOCYTES % (AUTO) 10 % (0-12); NEUTROPHILS # (AUTO) 4.3 10^3/uL (1.8-7.8); NEUTROPHILS % (AUTO) 70 % (42-75); PLATELET COUNT 288 10^3/uL (130-400); WHITE BLOOD COUNT 6.1 10^3/uL (4.3-11.0)
[2023-04-17 05:30] LABS: ALBUMIN 2.5 GM/DL (3.2-4.5); BILIRUBIN,TOTAL 0.3 MG/DL (0.1-1.0); CALCIUM 8.8 MG/DL (8.5-10.1); CREATININE SERUM 0.92 MG/DL (0.60-1.30); MAGNESIUM 1.9 MG/DL (1.6-2.4); PHOSPHORUS 2.2 MG/DL (2.3-4.7); POTASSIUM 3.7 MMOL/L (3.6-5.0); TOTAL PROTEIN 5.1 GM/DL (6.4-8.2)
[2023-04-17] MEDS: POTASSIUM CL 10MEQ/50ML IVPB 50 ML IV SCH (06:21)
[2023-04-17] MEDS: MAGNESIUM 1 GM/100 ML IVPB 100 ML IV SCH ×2 (06:28→08:00)
[2023-04-17] MEDS: POTASSIUM CHLORIDE 20 MEQ TABLET PO SCH (06:28)
[2023-04-17] MEDS: CYANOCOBALAMIN 1,000 MCG TABLET PO SCH (06:29)
[2023-04-17] MEDS: LACTATED RINGERS 1,000 ML IV SCH (06:29)
[2023-04-17] MEDS: inSUlin ASPART 1 UNIT/0.01 ML (PER UNIT) SC SCH ×4 (06:36→21:29)
--- NOTE | 2023-04-17 07:18 | Physical Therapy Progress Note ---
Therapy Progress Note Patient transferred to ICU due to A-fib. PT will require new orders to resume therapy when patient is deemed medically stable and able to actively participate with skilled PT. ALTHEA MASSEY PT Apr 17, 2023 07:18
--- NOTE | 2023-04-17 07:49 | Progress Note - Surgery ---
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 Pt is responsive, alert, and oriented. Patient says he is feeling much better. Pt states he is having uncontrolled bowel movements. Per nurse pts O2 sat dropped to low 80s but improved on 6L NC.Pt has not been ambulating yet this morning but was walking over the weekend. He is generally comfortable and he appears to have much less pallor. He slept hard and well last night and is in good spirits. Review of Systems General: No Chills, No Night Sweats HEENT: No Head Aches Pulmonary: No Pleuritic Chest Pain Cardiovascular: No: Chest Pain Gastrointestinal: Abdominal Pain, Melena Genitourinary: No Frequency; Incontinence Focused Exam Lactate Level 04/15/23 05:25: Lactic Acid Level 0.70 04/15/23 10:36: Lactic Acid Level 0.64 Respiratory: No Accessory Muscle Use, No Respiratory Distress Cardiovascular: Regular Rate, Rhythm Skin: normal color, warm/dry, pallor Objective Exam Vital Signs Date Time Temp Pulse Resp B/P (MAP) Pulse Ox O2 Delivery O2 Flow Rate FiO2 04/17/23 06:00 78 20 109/52 (71) 97 OxyMask 4.00 04/17/23 05:00 80 14 120/58 (78) 94 OxyMask 4.00 04/17/23 04:00 97 High Flow N/C 4.00 04/17/23 04:00 80 21 109/60 (76) 92 OxyMask 4.00 04/17/23 03:00 78 20 98/54 (69) 89 OxyMask 4.00 04/17/23 02:00 76 19 108/53 (71) 97 OxyMask 4.00 04/17/23 01:00 84 20 101/59 (73) 95 OxyMask 4.00 04/17/23 00:55 75 04/17/23 00:00 81 18 88/47 (61) 91 OxyMask 4.00 04/16/23 23:59 97 High Flow N/C 4.00 04/16/23 23:00 80 18 93/52 (66) 97 OxyMask 4.00 04/16/23 22:00 81 18 109/54 (72) 95 OxyMask 4.00 04/16/23 21:52 OxyMask 4.00 04/16/23 21:25 Nasal Cannula 4.00 04/16/23 21:00 115/76 (89) Nasal Cannula 4.00 04/16/23 20:00 96 High Flow N/C 4.00 04/16/23 20:00 96 11 115/52 (73) 94 Nasal Cannula 4.00 04/16/23 20:00 35.9 04/16/23 19:00 92 04/16/23 19:00 96 16 102/54 (70) 95 Nasal Cannula 4.00 04/16/23 18:00 75 9 110/53 (73) 94 OxyMask 4.00 04/16/23 17:00 76 18 113/65 (89) 94 OxyMask 4.00 04/16/23 16:00 96 High Flow N/C 4.00 04/16/23 16:00 76 18 120/55 (77) 96 OxyMask 4.00 04/16/23 15:00 80 18 107/54 (72) 97 OxyMask 4.00 04/16/23 14:00 84 26 108/55 (73) 98 OxyMask 4.00 04/16/23 13:00 89 16 106/52 (76) 97 OxyMask 4.00 04/16/23 12:34 105 04/16/23 12:00 36.3 04/16/23 12:00 110 18 97/58 (79) 95 OxyMask 4.00 04/16/23 12:00 95 High Flow N/C 4.00 04/16/23 11:00 112 17 114/83 (87) 99 OxyMask 4.00 04/16/23 10:26 131 98/49 04/16/23 10:19 36.4 126 96 04/16/23 10:00 120 30 123/54 (59) 97 OxyMask 4.00 04/16/23 09:00 126 22 89/67 (77) 96 OxyMask 4.00 04/16/23 08:00 92 20 119/63 (83) 91 OxyMask 4.00 04/16/23 08:00 36.4 04/16/23 08:00 97 OxyMask 4.00 I & O 04/17/23 07:00 Intake Total 1675 ml Output Total 975 ml Balance 700 ml Capillary Refill : General Appearance: No Apparent Distress, WD/WN, Chronically ill HEENT: PERRL/EOMI, Normal ENT Inspection Neck: Full Range of Motion, Supple Respiratory: Lungs Clear, Normal Breath Sounds Cardiovascular: Regular Rate, Rhythm Peripheral Pulses: 2+ Radial Pulses (R), 2+ Radial Pulses (L) Gastrointestinal: soft, distended (slight), tenderness (minimal pain at incision c/d/i) Extremity: Normal Capillary Refill, Non Tender Neurologic/Psychiatric: Alert, Oriented x3 Skin: Normal Color, Warm/Dry Lymphatic: No Adenopathy (cervical) Results Lab Laboratory Tests 04/16/23 10:39: Glucometer 134H 04/16/23 15:40: Glucometer 154H 04/16/23 20:43: Glucometer 192H 04/17/23 04:18: White Blood Count 6.1, Red Blood Count 2.92L, Hemoglobin 7.5L, Hematocrit 25L, Mean Corpuscular Volume 85, Mean Corpuscular Hemoglobin 26, Mean Corpuscular Hemoglobin Concent 30L, Red Cell Distribution Width 14.1, Platelet Count 288, Mean Platelet Volume 10.2, Immature Granulocyte % (Auto) 1, Neutrophils (%) (Auto) 70, Lymphocytes (%) (Auto) 16, Monocytes (%) (Auto) 10, Eosinophils (%) (Auto) 4, Basophils (%) (Auto) 0, Neutrophils # (Auto) 4.3, Lymphocytes # (Auto) 1.0, Monocytes # (Auto) 0.6, Eosinophils # (Auto) 0.2, Basophils # (Auto) 0.0, Immature Granulocyte # (Auto) 0.0, Sodium Level 138, Potassium Level 3.7, Chloride Level 104, Carbon Dioxide Level 27, Anion Gap 7, Blood Urea Nitrogen 12, Creatinine 0.92, Estimat Glomerular Filtration Rate 85, BUN/Creatinine Ratio 13, Glucose Level 120H, Calcium Level 8.8, Corrected Calcium 10.0, Phosphorus Level 2.2L, Magnesium Level 1.9, Total Bilirubin 0.3, Aspartate Amino Transf (AST/SGOT) 9, Alanine Aminotransferase (ALT/SGPT) 8, Alkaline Phosphatase 48, Total Protein 5.1L, Albumin 2.5L 04/17/23 06:35: Glucometer 138H Microbiology 04/15/23 Blood Culture - Preliminary, Resulted No growth 04/15/23 MRSA Screen - Final, Complete MRSA not isolated Assessment/Plan Assessment/Plan Assessment/Plan Right colon resection for adenocarcinoma of the colon Post-Op Ileus Anemia History of iron def anemia Recent episode of Afib Continue to follow hemoglobin Continue 6L O2 via NC and continue to monitor O2 sats SCDs for dvt prophylaxis and afib - starting anticoagulation IV fluids Continue incentive spirometer Continue to encourage patient movement soft bite sized foods and will advance if continues to have bowel function and no n/v MURPHY PERALTA DO 04/17/23 1636: Subjective Subjective/Events-last exam Pain doing well. Having bowel function. Tolerating diet. Using oxygen. Using Acapella. Hoping to go home soon. Denies n/v fever sweats chills or chest pain. Objective Exam General Appearance: No Apparent Distress, WD/WN, Chronically ill HEENT: PERRL/EOMI, Normal ENT Inspection Neck: Full Range of Motion, Supple Respiratory: Chest Non Tender, No Accessory Muscle Use, No Respiratory Distress Cardiovascular: Regular Rate, Rhythm, No JVD Gastrointestinal: soft, distended (minimal), tenderness (minimal pain at incision c/d/i) Extremity: Normal Capillary Refill, Non Tender Neurologic/Psychiatric: Alert, Oriented x3 Skin: Normal Color, Warm/Dry Lymphatic: No Adenopathy (cervical) Assessment/Plan Assessment/Plan Assessment/Plan Right colon resection for adenocarcinoma of the colon Post-Op Ileus Anemia History of iron def anemia Recent episode of Afib Continue to follow hemoglobin Continue 6L O2 via NC and continue to monitor O2 sats try to wean and eval for home o2 SCDs for dvt prophylaxis and afib - anticoagulation IV fluids Continue incentive spirometer Continue to encourage patient movement diet as tolerates home soon Supervisory-Addendum Brief Verification & Attestation Participated in pt care: history, MDM, physical Personally performed: exam, history, MDM, supervision of care Care discussed with: Medical Student Procedures: n/a Results interpretation: Verified all documentation Verification and Attestation of Medical Student E/M Service A medical student performed and documented this service in my presence. I reviewed and verified all information documented by the medical student and made modifications to such information, when appropriate. I personally performed the physical exam and medical decision making. Murphy Peralta, Apr 17, 2023,16:36 TITI DAVIS Apr 17, 2023 07:49 MURPHY PERALTA DO Apr 17, 2023 16:36
--- NOTE | 2023-04-17 09:05 | Progress Note - Hospitalist ---
Subjective HPI/CC On Admission Date Seen by Provider: Apr 17, [address] Peralta for medical management. Patient is a 77-year-old male who underwent extended right colon resection today. He underwent an EGD and colonoscopy on 03/17 for iron-deficiency anemia and was found to have masses at the cecum and hepatic flexure. Biopsies were taken and further workup revealed this to be colon cancer, leading to the extended right colon resection. Patient is seen sleeping comfortably in bed, easily aroused. He reports that he is having some pain currently but that it is well-controlled with the pain medication. He reports no other complaints. Incisions are clean and dressed. Patient has no other complaints. Focused Exam Lactate Level 04/15/23 05:25: Lactic Acid Level 0.70 04/15/23 10:36: Lactic Acid Level 0.64 Objective Exam Vital Signs Vital Signs Date Time Temp Pulse Resp B/P (MAP) Pulse Ox O2 Delivery O2 Flow Rate FiO2 04/17/23 11:55 36.6 04/17/23 09:00 90 22 135/74 (94) 80 OxyMask 4.00 Capillary Refill : Results/Procedures Lab Laboratory Tests 04/17/23 04:18 Patient resulted labs reviewed. Assessment/Plan Assessment and Plan Assess & Plan/Chief Complaint Assessment: Status post partial colon resection now with postop ileus Episode of atrial fibrillation placed on oral anticoagulation Diabetes Anemia iron deficient so giving iron infusions Plan: Supportive care Iron infusion Cardiology consult Critical Care Critically Ill Patient LISA EATON DO Apr 17, 2023 09:05
[2023-04-17] MEDS: APIXABAN 5 MG TABLET PO SCH ×2 (09:23→20:16)
[2023-04-17] MEDS: PANTOPRAZOLE 40 MG (PROTONIX) VIAL IV SCH ×2 (09:23→20:16)
[2023-04-17] MEDS: dilTIAZem ER 240 MG CAPSULE PO SCH (09:23)
--- NOTE | 2023-04-17 09:57 | Progress Note - Cardiology ---
Cardiology SOAP Progress Note Subjective: Lying in bed States he feels good this morning No c/o CP, SOB or palpitations Objective: I&O/Vital Signs 04/17/23 04/18/23 04/18/23 04/18/23 23:26 03:57 07:03 07:14 Temp 36.6 36.6 36.9 Pulse 87 84 82 Resp 18 18 18 B/P (MAP) 111/57 (75) 115/58 (77) 133/68 (89) Pulse Ox 96 94 94 96 O2 Delivery High Flow N/C High Flow N/C Nasal Cannula High Flow N/C O2 Flow Rate 4.00 4.00 4.00 6.00 4.00 4.00 04/18/23 08:00 Pulse Ox 96 O2 Delivery High Flow N/C O2 Flow Rate 6.00 04/18/23 00:00 Intake Total 3380 ml Output Total 1575 ml Balance 1805 ml Constitutional: AAO x 3, well-developed, well-nourished Respiratory: No accessory muscle use; chest expansion is symmetric, chest is bilaterally symmetric, other (good, bilateral air entry) Cardiovascular: regular rate-rhythm, S1 and S2, systolic murmur (soft BINTA at card base) Gastrointestional: No tender; soft; No guarding, No rebound; audible bowel soun ds Extremities: No clubbing, No cyanosis, No significant edema Neurologic/Psychiatric: oriented x 3, other (moves all limbs equally) Skin: normal color, warm/dry, pallor Results/Procedures: Labs Laboratory Tests 04/17/23 10:37: Glucometer 184H 04/17/23 14:42: Blood Gas Puncture Site LEFT RADIAL, Blood Gas Patient Temperature 36.5, Arterial Blood pH 7.43, Arterial Blood Partial Pressure CO2 43, Arterial Blood Partial Pressure O2 63L, Arterial Blood HCO3 28H, Arterial Blood Total CO2 29.8, Arterial Blood Oxygen Saturation 94, Arterial Blood Base Excess 4.2H, Tim Test NA, Blood Gas Ventilator Setting NO, Blood Gas Inspired Oxygen 2% 04/17/23 15:49: Glucometer 156H 04/17/23 20:21: Glucometer 190H 04/18/23 05:03: White Blood Count 5.0, Red Blood Count 2.99L, Hemoglobin 7.5L, Hematocrit 25L, Mean Corpuscular Volume 84, Mean Corpuscular Hemoglobin 25, Mean Corpuscular Hemoglobin Concent 30L, Red Cell Distribution Width 13.9, Platelet Count 308, Mean Platelet Volume 10.2, Immature Granulocyte % (Auto) 0, Neutrophils (%) (Auto) 69, Lymphocytes (%) (Auto) 17, Monocytes (%) (Auto) 9, Eosinophils (%) (Auto) 4, Basophils (%) (Auto) 0, Neutrophils # (Auto) 3.4, Lymphocytes # (Auto) 0.9L, Monocytes # (Auto) 0.5, Eosinophils # (Auto) 0.2, Basophils # (Auto) 0.0, Immature Granulocyte # (Auto) 0.0, Sodium Level 140, Potassium Level 3.7, Chloride Level 105, Carbon Dioxide Level 29, Anion Gap 6, Blood Urea Nitrogen 8, Creatinine 0.87, Estimat Glomerular Filtration Rate 88, BUN/Creatinine Ratio 9, Glucose Level 162H, Calcium Level 9.0, Corrected Calcium 10.1, Total Bilirubin 0.3, Aspartate Amino Transf (AST/SGOT) 14, Alanine Aminotransferase (ALT/SGPT) 7, Alkaline Phosphatase 51, Total Protein 5.1L, Albumin 2.6L 04/18/23 05:20: Glucometer 149H Microbiology 04/15/23 Blood Culture - Preliminary, Resulted No growth 04/15/23 MRSA Screen - Final, Complete MRSA not isolated A/P: Assessment: PAF, first documented on 04/16/23 S/p laparoscope-assisted right colon resection for adenocarcinoma of the colon on 04/13/23 - Post-Op Ileus, resolving, managed the Surg Svce - Post-Op Anemia, managed by the Med Svce [place] h/o sleep apnea Plan: * Diltiazem for rate control * Apixaban for stroke prophylaxis * Post surgical anemia - management per surgical services * Consider blood transfusion to restore hemoglobin above 8 * Echo * Monitor labs and maintain electrolyte and acid-base balance TESSA MIRAMONTES [facility] Apr 17, 2023 09:57
[2023-04-17] MEDS: dilTIAZem DRIP PRE-MIX 125 ML IV SCH (10:15)
--- NOTE | 2023-04-17 11:02 | Tele-ICU Progress Note ---
Subjective Date Seen by a Provider: Apr 17, 2023 Time Seen by a Provider: 11:01 Subjective/Events-last exam (Tele-ICU Physician , Progress Note ) Service provided via interactive audio and video telecommunications E-CARE system to a patient admitted to ICU bed in [facility]. Patient is seen today due to persistent need of ICU care Available chart/ vitals / labs / Images reviewed Video assessment done using teleICU camera, rest of exam as per RN Discussed with RN Events overnight : Afebrile hemodynamically stable Respiratory - 4l I/O =+ Drips: ns 75 Pressors- no Hospital course: A/P S/p laparoscope-assisted right colon resection for adenocarcinoma of the colon on 04/13/23 - Post-Op Ileus, resolving- as per sx Hypoxia - on 4 L - IS to start - decrease IVF when ok with SX A fib RVR - -off cardizem gtt , on PO - on apixaban - ECHO pending Lines : , (Central Line Necessity Reviewed) Llamas: void OG: Nutrition: Analgesia: Anxiety/ delirium VTE Prophylaxis: apixaban Stress Ulcer Prophylaxis: ppi bid Plans in collaboration with bedside consultants and IM MDs. Discussed with RN to reach out if any questions or concerns Case and care daily discussed on multidisciplinary rounds ( RN, PharmD, Header Set Up Operator , Respiratory Therapy, composite bond worker ) A total of _10 minutes of critical care time was devoted to this patient today, required to treat and/or prevent further deterioration of critical care condition ( as above ) . I am remotely monitoring this patient from another state. I am unable to do the bedside exam, and history/physical and pertinent information is taken from other notes in the computer and bedside staff. Sepsis Event Evaluation Height, Weight, BMI Height: '" Weight: lbs. oz. kg; 29.77 BMI Method: Focused Exam Lactate Level 04/15/23 05:25: Lactic Acid Level 0.70 04/15/23 10:36: Lactic Acid Level 0.64 Exam Exam Patient acknowledged, consented, and participated in this virtual visit which was conducted using real time audio/video Vital Signs Date Time Temp Pulse Resp B/P (MAP) Pulse Ox O2 Delivery O2 Flow Rate FiO2 04/17/23 09:00 90 22 135/74 (94) 80 OxyMask 4.00 04/17/23 08:02 36.8 04/17/23 08:00 13 133/69 (108) 92 OxyMask 4.00 04/17/23 07:00 83 04/17/23 07:00 83 25 119/61 (82) 92 OxyMask 4.00 04/17/23 06:00 78 20 109/52 (71) 97 OxyMask 4.00 04/17/23 05:00 80 14 120/58 (78) 94 OxyMask 4.00 04/17/23 04:00 97 High Flow N/C 4.00 04/17/23 04:00 80 21 109/60 (76) 92 OxyMask 4.00 04/17/23 03:00 78 20 98/54 (69) 89 OxyMask 4.00 04/17/23 02:00 76 19 108/53 (71) 97 OxyMask 4.00 04/17/23 01:00 84 20 101/59 (73) 95 OxyMask 4.00 04/17/23 00:55 75 04/17/23 00:00 81 18 88/47 (61) 91 OxyMask 4.00 04/16/23 23:59 97 High Flow N/C 4.00 04/16/23 23:00 80 18 93/52 (66) 97 OxyMask 4.00 04/16/23 22:00 81 18 109/54 (72) 95 OxyMask 4.00 04/16/23 21:52 OxyMask 4.00 04/16/23 21:25 Nasal Cannula 4.00 04/16/23 21:00 115/76 (89) Nasal Cannula 4.00 04/16/23 20:00 96 High Flow N/C 4.00 04/16/23 20:00 96 11 115/52 (73) 94 Nasal Cannula 4.00 04/16/23 20:00 35.9 04/16/23 19:00 92 04/16/23 19:00 96 16 102/54 (70) 95 Nasal Cannula 4.00 04/16/23 18:00 75 9 110/53 (73) 94 OxyMask 4.00 04/16/23 17:00 76 18 113/65 (89) 94 OxyMask 4.00 04/16/23 16:00 96 High Flow N/C 4.00 04/16/23 16:00 76 18 120/55 (77) 96 OxyMask 4.00 04/16/23 15:00 80 18 107/54 (72) 97 OxyMask 4.00 04/16/23 14:00 84 26 108/55 (73) 98 OxyMask 4.00 04/16/23 13:00 89 16 106/52 (76) 97 OxyMask 4.00 04/16/23 12:34 105 04/16/23 12:00 36.3 04/16/23 12:00 110 18 97/58 (79) 95 OxyMask 4.00 04/16/23 12:00 95 High Flow N/C 4.00 I & O 04/17/23 07:00 Intake Total 2675 ml Output Total 975 ml Balance 1700 ml Height & Weight Height: '" Weight: lbs. oz. kg; 29.77 BMI Method: General Appearance: No Apparent Distress, WD/WN, Chronically ill HEENT: PERRL/EOMI, Normal ENT Inspection Neck: Full Range of Motion, Supple Respiratory: Lungs Clear, Normal Breath Sounds Cardiovascular: Regular Rate, Rhythm Peripheral Pulses: 2+ Radial Pulses (R), 2+ Radial Pulses (L) Gastrointestinal: soft, distended (slight), tenderness (minimal pain at incision c/d/i) Extremity: Normal Capillary Refill, Non Tender Neurologic/Psychiatric: Alert, Oriented x3 Skin: Normal Color, Warm/Dry Lymphatic: No Adenopathy (cervical) Results Lab Laboratory Tests 04/16/23 04:28 04/17/23 04:18 Assessment/Plan Assessment/Plan 1 GABY JOHN MD Apr 17, 2023 11:01
--- NOTE | 2023-04-17 11:35 | Physician Query-Final Dx ---
SHERIN SHIN 04/17/23 1135: Final Diagnosis Give Final Diagnosis Please give Final Diagnosis The medical record reflects the following clinical evidence: Clinical Indicators: Was initially on room air, on admission, In recovery room was on 10 L, on day of admission was decreased to 4 L but has required 2 to 6 L since day of admission for more than 4 days remains currently on 4 L, O2 sats as low as 80-89% while on 4 L (P/H=[id number]), O2 sats frequently in the low 90s while on oxygen, RR 18 on admission increased to 30 has been on mid 20s frequently, No documentation of Respiratory S/S. Risk Factor(s): Advanced age, extensive abdominal surgery for colon cancer, no history of home O2 use Treatment: Supplemental 02, Monitoring in ICU post op, Albuterol Acute pulmonary insufficiency following nonthoracic surgery Other explanation of clinical findings Unable to determine (no explanation for clinical findings) Please clarify and document your clinical opinion in the progress notes and discharge summary including the definitive and/or presumptive diagnosis, (suspected or probable), related to the above clinical findings. Please include clinical findings supporting your diagnosis. Sherin Shin, MSN, RN Clinical [place] [phone] [email or web address] LISA EATON DO 04/17/23 1240: Final Diagnosis Give Final Diagnosis acute resp failure following non-cardiac and pulmonary surgery SHERIN SHIN Apr 17, 2023 11:35 LISA EATON DO Apr 17, 2023 12:40
[2023-04-17] MEDS ORDERED: GLIM4TAB5 PO (12:26)
[2023-04-17] MEDS ORDERED: DILT240C91 PO (12:26)
[2023-04-17] MEDS ORDERED: RIVA20TA PO (12:26)
[2023-04-17] MEDS ORDERED: ACHD5005 PO (12:26)
--- NOTE | 2023-04-17 12:28 | D/C HH Face to Face Order ---
D/C HH Face to Face Orders Reconcile Patient Problems Problems Reviewed?: Yes Instructions for Patient HH Patient Instructions/FollowUp: PCP Raine Peralta Physician to follow Patient: Raine Discharge Diet for Home: No Restrictions Patient Problems: right colon mass AF Anemia DM Patient Data-Allergies,Ht & Wt Patient Allergies: Coded Allergies: No Known Drug Allergies (Unverified , 04/13/23) Home Health Need/Face to Face Date of Face to Face: Apr 17, 2023 Clinical Findings: Generalized weakness and fatigue, Instability, Muscle weakness I have seen Pt [id number]: Yes Discharged To: Home Diagnosis/Conditions: Colon mass Patient is Homebound due to: Princess fall risk due to instabilty, Muscle weakness Homebound Status Due to the above stated illness, injury or surgical procedure (medical condition or diagnosis) and associated clinical findings, the patient is homebound because of his/her inability to leave home except with aid of a supportive device and/or person AND leaving the home requires a considerable and taxing effort or is medically contraindicated. Pt req the following assistanc: [facility] Nursing Orders Home Health Services Order: Nursing Services, Gear Machinist-Evaluate & Treat, Physical Therapy-Evaluate & Treat Home Health Infusion Therapy Line Start Date: Apr 14, 2023 Certify Stmt I certify that this patient is under my care and that I, a nurse practitioner or a physician; a assistant grocery store manager working with me, had a face to face encounter that - meets the physician face to face encounter requirements with this patient as dated. LISA EATON DO Apr 17, 2023 12:28
--- NOTE | 2023-04-17 12:28 | Discharge Summary ---
Discharge Summary Hospital Course Was the Problem List Reviewed?: Yes Problems/Dx: (1) Cancer of right colon Status: Acute (2) Iron deficiency anemia Status: Acute Qualifiers: Qualified Codes: D50.9 - Iron deficiency anemia, unspecified (3) Diabetes mellitus Status: Chronic Qualifiers: Qualified Codes: E11.9 - Type 2 diabetes mellitus without complications (4) Oxygen desaturation Status: Acute (5) Hyponatremia Status: Acute Hospital Course Date of Admission: Apr 13, 2023 at 06:39 Admission Diagnosis : Family Physician/Provider: Vaibhav Ni MD Date of Discharge: 04/17/23 Discharge Diagnosis: [ ] Hospital Course: Patient had an uneventful hospital course after he underwent partial resection for colon cancer. He did have an episode of new onset atrial fibrillation requiring oral anticoagulation. Iron deficiency anemia diagnosed given iron infusions and B12 supplement. He did require oxygen supplementation and given the fact that he required so much oxygen supplementation he was held over for 1 day to see if we can decrease the amount and chest x-ray had no acute abnormality and ABG showed hypoxia. Labs remained stable. Labs and Pending Lab Test: Laboratory Tests 04/16/23 15:40: Glucometer 154H 04/16/23 20:43: Glucometer 192H 04/17/23 04:18: White Blood Count 6.1, Red Blood Count 2.92L, Hemoglobin 7.5L, Hematocrit 25L, Mean Corpuscular Volume 85, Mean Corpuscular Hemoglobin 26, Mean Corpuscular Hemoglobin Concent 30L, Red Cell Distribution Width 14.1, Platelet Count 288, Mean Platelet Volume 10.2, Immature Granulocyte % (Auto) 1, Neutrophils (%) (Auto) 70, Lymphocytes (%) (Auto) 16, Monocytes (%) (Auto) 10, Eosinophils (%) (Auto) 4, Basophils (%) (Auto) 0, Neutrophils # (Auto) 4.3, Lymphocytes # (Auto) 1.0, Monocytes # (Auto) 0.6, Eosinophils # (Auto) 0.2, Basophils # (Auto) 0.0, Immature Granulocyte # (Auto) 0.0, Sodium Level 138, Potassium Level 3.7, Chloride Level 104, Carbon Dioxide Level 27, Anion Gap 7, Blood Urea Nitrogen 12, Creatinine 0.92, Estimat Glomerular Filtration Rate 85, BUN/Creatinine Ratio 13, Glucose Level 120H, Calcium Level 8.8, Corrected Calcium 10.0, Phosphorus Level 2.2L, Magnesium Level 1.9, Total Bilirubin 0.3, Aspartate Amino Transf (AST/SGOT) 9, Alanine Aminotransferase (ALT/SGPT) 8, Alkaline Phosphatase 48, Total Protein 5.1L, Albumin 2.5L 04/17/23 06:35: Glucometer 138H 04/17/23 10:37: Glucometer 184H Microbiology 04/15/23 Blood Culture - Preliminary, Resulted No growth 04/15/23 MRSA Screen - Final, Complete MRSA not isolated Home Meds Active Hydrocodone-Acetamin 5-325 mg (Hydrocodone/Acetaminophen) 5 Mg-325 Mg Tablet 1 Ea PO Q4H PRN Diltiazem 24Hr ER (Diltiazem HCl) 240 Mg Cap.er.24h 240 Mg PO DAILY Xarelto (Rivaroxaban) 20 Mg Tablet 20 Mg PO DAILY Glimepiride 4 Mg Tablet 4 Mg PO DAILY 14 Days take 1/2 pill daily until check up with [facility] doctor Protonix (Pantoprazole Sodium) 40 Mg Tablet.dr 40 Mg PO DAILY Reported Tylenol (Acetaminophen) 325 Mg Tablet 650 Mg PO BID Metformin HCl ER (Metformin HCl) 750 Mg Tab.er.24h 750 Mg PO DAILY Ferrous Sulfate 324 Mg (65 Mg Iron) Tablet.dr 324 Mg PO BID Lisinopril 5 Mg Tablet 5 Mg PO DAILY Doxazosin Mesylate 2 Mg Tablet 2 Mg PO DAILY Lovastatin 20 Mg Tablet 20 Mg PO HS Assessment/Pt Instructions PCP in 1 week Discharge Planning: <30 minutes discharge planning Discharge Instructions Discharge Diet: No Restrictions Activity as Tolerated: Yes Discharge Physical Examination Vital Signs Vital Signs Date Time Temp Pulse Resp B/P (MAP) Pulse Ox O2 Delivery O2 Flow Rate FiO2 04/17/23 11:55 36.6 04/17/23 09:00 90 22 135/74 (94) 80 OxyMask 4.00 General Appearance: No Apparent Distress, WD/WN, Chronically ill Respiratory: Lungs Clear, Normal Breath Sounds Allergies: Coded Allergies: No Known Drug Allergies (Unverified , 04/13/23) Discharge Summary Date of Admission Apr 13, 2023 at 06:39 Date of Discharge Discharge Date: Apr 17, 2023 Discharge Diagnosis Assessment: Status post partial colon resection now with postop ileus Episode of atrial fibrillation placed on oral anticoagulation Diabetes Anemia iron deficient so giving iron infusions Plan: Supportive care Iron infusion Cardiology consult (1) Cancer of right colon Status: Acute Assessment & Plan: Status post partial colon resection by Dr. Peralta Pain management and diet advancement per primary team Abdominal exam not concerning today. Agree with Dr. Peralta about holding off on NG tube and monitoring in the ICU for 1 day. (2) Iron deficiency anemia Status: Acute Assessment & Plan: Status post 1 unit PRBC Improved hemoglobin to 8.5 today No overt signs of bleeding Continue to monitor with daily CBC Qualifiers: Qualified Codes: D50.9 - Iron deficiency anemia, unspecified (3) Diabetes mellitus Status: Chronic Assessment & Plan: Continue sliding scale insulin Qualifiers: Qualified Codes: E11.9 - Type 2 diabetes mellitus without complications (4) Oxygen desaturation Status: Acute Assessment & Plan: Patient on 5 L of nasal cannula, no oxygen requirement at home Wean as tolerated, keep saturations above 92% (5) Hyponatremia Status: Acute Assessment & Plan: Sodium 133 today, likely dilutional will continue to monitor for further decrease with daily CMP/BMP LISA EATON DO Apr 17, 2023 12:28
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
[2023-04-17 14:52] LABS: ABG BASE EXCESS 4.2 MMOL/L (-2.5-2.5); ABG OXYGEN SATURATION 94 % (94-100); ABG PCO2 43 MMHG (35-45); ABG PH 7.43 (7.37-7.43); ABG PO2 63 MMHG (79-93); ABG TCO2 29.8 MMOL/L (21.0-31.0)
[2023-04-17 14:53] LABS: PATIENT TEMP 36.5; VENTILATOR NO
[2023-04-17 18:03] VITALS: BP 126/57
--- NOTE | 2023-04-17 18:46 | Progress Note - Cardiology ---
Cardiology SOAP Progress Note Subjective: No cp or palp or syncope or shortness of breath Gen weakness and malaise No focal weakness No n/v/d Objective: I&O/Vital Signs 04/17/23 04/17/23 04/17/23 04/17/23 07:00 07:00 08:00 08:00 Pulse 83 83 Resp 25 13 B/P (MAP) 119/61 (82) 133/69 (108) Pulse Ox 92 96 92 O2 Delivery OxyMask OxyMask OxyMask O2 Flow Rate 4.00 4.00 4.00 04/17/23 04/17/23 04/17/23 04/17/23 08:02 09:00 10:00 11:00 Temp 36.8 Pulse 90 86 80 Resp 22 11 32 B/P (MAP) 135/74 (94) 121/66 (84) 117/57 (80) Pulse Ox 80 96 94 O2 Delivery OxyMask OxyMask OxyMask O2 Flow Rate 4.00 4.00 4.00 04/17/23 04/17/23 04/17/23 04/17/23 11:55 12:00 12:00 13:00 Temp 36.6 Pulse 82 91 Resp 21 19 B/P (MAP) 131/67 (93) 130/62 (84) Pulse Ox 94 92 94 O2 Delivery High Flow N/C OxyMask OxyMask O2 Flow Rate 4.00 4.00 4.00 04/17/23 04/17/23 04/17/23 04/17/23 13:00 14:00 15:00 15:30 Temp 36.6 Pulse 91 88 87 Resp 18 16 B/P (MAP) 128/64 (85) 136/68 (90) Pulse Ox 96 96 O2 Delivery OxyMask OxyMask Nasal Cannula O2 Flow Rate 4.00 4.00 4.50 04/17/23 04/17/23 04/17/23 16:00 18:03 18:03 Temp 37.3 37.3 Pulse 89 89 Resp 18 18 B/P (MAP) 126/57 (80) 126/57 (80) Pulse Ox 95 96 96 O2 Delivery High Flow N/C High Flow N/C High Flow N/C O2 Flow Rate 4.00 2.00 2.00 04/17/23 00:00 Intake Total 1550 ml Output Total 300 ml Balance 1250 ml Constitutional: AAO x 3, well-developed, well-nourished Respiratory: No accessory muscle use; chest expansion is symmetric, chest is b ilaterally symmetric, other (good, bilateral air entry) Cardiovascular: regular rate-rhythm, S1 and S2, systolic murmur (soft BINTA at card base) Gastrointestional: No tender; soft; No guarding, No rebound; audible bowel sounds Extremities: No clubbing, No cyanosis, No significant edema Neurologic/Psychiatric: oriented x 3, other (moves all limbs equally) Skin: normal color, warm/dry, pallor Results/Procedures: Labs Laboratory Tests 04/16/23 20:43: Glucometer 192H 04/17/23 04:18: White Blood Count 6.1, Red Blood Count 2.92L, Hemoglobin 7.5L, Hematocrit 25L, Mean Corpuscular Volume 85, Mean Corpuscular Hemoglobin 26, Mean Corpuscular Hemoglobin Concent 30L, Red Cell Distribution Width 14.1, Platelet Count 288, Mean Platelet Volume 10.2, Immature Granulocyte % (Auto) 1, Neutrophils (%) (Auto) 70, Lymphocytes (%) (Auto) 16, Monocytes (%) (Auto) 10, Eosinophils (%) (Auto) 4, Basophils (%) (Auto) 0, Neutrophils # (Auto) 4.3, Lymphocytes # (Auto) 1.0, Monocytes # (Auto) 0.6, Eosinophils # (Auto) 0.2, Basophils # (Auto) 0.0, Immature Granulocyte # (Auto) 0.0, Sodium Level 138, Potassium Level 3.7, Chloride Level 104, Carbon Dioxide Level 27, Anion Gap 7, Blood Urea Nitrogen 12, Creatinine 0.92, Estimat Glomerular Filtration Rate 85, BUN/Creatinine Ratio 13, Glucose Level 120H, Calcium Level 8.8, Corrected Calcium 10.0, Phosphorus L evel 2.2L, Magnesium Level 1.9, Total Bilirubin 0.3, Aspartate Amino Transf (AST/SGOT) 9, Alanine Aminotransferase (ALT/SGPT) 8, Alkaline Phosphatase 48, Total Protein 5.1L, Albumin 2.5L 04/17/23 06:35: Glucometer 138H 04/17/23 10:37: Glucometer 184H 04/17/23 14:42: Blood Gas Puncture Site LEFT RADIAL, Blood Gas Patient Temperature 36.5, Arterial Blood pH 7.43, Arterial Blood Partial Pressure CO2 43, Arterial Blood Partial Pressure O2 63L, Arterial Blood HCO3 28H, Arterial Blood Total CO2 29.8, Arterial Blood Oxygen Saturation 94, Arterial Blood Base Excess 4.2H, Tim Test NA, Blood Gas Ventilator Setting NO, Blood Gas Inspired Oxygen 2% 04/17/23 15:49: Glucometer 156H Microbiology 04/15/23 Blood Culture - Preliminary, Resulted No growth 04/15/23 MRSA Screen - Final, Complete MRSA not isolated Laboratory Tests 04/16/23 04:28 04/17/23 04:18 A/P: Assessment: PAF, first documented on 04/16/23 - Echo on 04-17-23: LVEF 55-60%. Grade 1 diastolic dysfunction. 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
[2023-04-17 19:58] VITALS: BP 146/73
[2023-04-17 23:26] VITALS: BP 111/57
[2023-04-18 03:57] VITALS: BP 115/58
[2023-04-18] MEDS: inSUlin ASPART 1 UNIT/0.01 ML (PER UNIT) SC SCH (05:28)
[2023-04-18 05:34] LABS: BASOPHILS % (AUTO) 0 % (0-10); EOSINOPHILS # (AUTO) 0.2 10^3/uL (0.0-0.3); EOSINOPHILS % (AUTO) 4 % (0-10); HEMATOCRIT 25 % (40-54); HEMOGLOBIN 7.5 g/dL (13.3-17.7); LYMPHOCYTES # (AUTO) 0.9 10^3/uL (1.0-4.0); LYMPHOCYTES % (AUTO) 17 % (12-44); MEAN CORPUSCULAR HEMOGLOBIN 25 pg (25-34); MEAN CORPUSCULAR HGB CONC 30 g/dL (32-36); MEAN CORPUSCULAR VOLUME 84 fL (80-99); MEAN PLATELET VOLUME 10.2 fL (9.0-12.2); MONOCYTES # (AUTO) 0.5 10^3/uL (0.0-1.0); MONOCYTES % (AUTO) 9 % (0-12); NEUTROPHILS # (AUTO) 3.4 10^3/uL (1.8-7.8); NEUTROPHILS % (AUTO) 69 % (42-75); PLATELET COUNT 308 10^3/uL (130-400)
[2023-04-18] MEDS: CYANOCOBALAMIN 1,000 MCG TABLET PO SCH (05:36)
[2023-04-18 06:01] LABS: ALBUMIN 2.6 GM/DL (3.2-4.5); BILIRUBIN,TOTAL 0.3 MG/DL (0.1-1.0); CREATININE SERUM 0.87 MG/DL (0.60-1.30); POTASSIUM 3.7 MMOL/L (3.6-5.0); TOTAL PROTEIN 5.1 GM/DL (6.4-8.2)
--- NOTE | 2023-04-18 06:30 | Discharge Summary ---
Discharge Summary Hospital Course Problems/Dx: (1) Cancer of right colon Status: Acute (2) Iron deficiency anemia Status: Acute Qualifiers: Qualified Codes: D50.9 - Iron deficiency anemia, unspecified (3) Diabetes mellitus Status: Chronic Qualifiers: Qualified Codes: E11.9 - Type 2 diabetes mellitus without complications (4) Oxygen desaturation Status: Acute (5) Hyponatremia Status: Acute Hospital Course Date of Admission: Apr 13, 2023 at 06:39 Admission Diagnosis : Family Physician/Provider: Vaibhav Ni MD Date of Discharge: 04/18/23 Discharge Diagnosis: [ ] Hospital Course: Patient had an uneventful hospital course after he underwent partial resection for colon cancer. He did have an episode of new onset atrial fibrillation requiring oral anticoagulation. Iron deficiency anemia diagnosed given iron infusions and B12 supplement. He did require oxygen supplementation and given the fact that he required so much oxygen supplementation he was held over for 1 day to see if we can decrease the amount and chest x-ray had no acute abnormality and ABG showed hypoxia. Labs remained stable. Labs and Pending Lab Test: Laboratory Tests 04/17/23 06:35: Glucometer 138H 04/17/23 10:37: Glucometer 184H 04/17/23 14:42: Blood Gas Puncture Site LEFT RADIAL, Blood Gas Patient Temperature 36.5, Arterial Blood pH 7.43, Arterial Blood Partial Pressure CO2 43, Arterial Blood Partial Pressure O2 63L, Arterial Blood HCO3 28H, Arterial Blood Total CO2 29.8, Arterial Blood Oxygen Saturation 94, Arterial Blood Base Excess 4.2H, Tim Test NA, Blood Gas Ventilator Setting NO, Blood Gas Inspired Oxygen 2% 04/17/23 15:49: Glucometer 156H 04/17/23 20:21: Glucometer 190H 04/18/23 05:03: White Blood Count 5.0, Red Blood Count 2.99L, Hemoglobin 7.5L, Hematocrit 25L, Mean Corpuscular Volume 84, Mean Corpuscular Hemoglobin 25, Mean Corpuscular Hemoglobin Concent 30L, Red Cell Distribution Width 13.9, Platelet Count 308, Mean Platelet Volume 10.2, Immature Granulocyte % (Auto) 0, Neutrophils (%) (Auto) 69, Lymphocytes (%) (Auto) 17, Monocytes (%) (Auto) 9, Eosinophils (%) (Auto) 4, Basophils (%) (Auto) 0, Neutrophils # (Auto) 3.4, Lymphocytes # (Auto) 0.9L, Monocytes # (Auto) 0.5, Eosinophils # (Auto) 0.2, Basophils # (Auto) 0.0, Immature Granulocyte # (Auto) 0.0, Sodium Level 140, Potassium Level 3.7, Chloride Level 105, Carbon Dioxide Level 29, Anion Gap 6, Blood Urea Nitrogen 8, Creatinine 0.87, Estimat Glomerular Filtration Rate 88, BUN/Creatinine Ratio 9, Glucose Level 162H, Calcium Level 9.0, Corrected Calcium 10.1, Total Bilirubin 0.3, Aspartate Amino Transf (AST/SGOT) 14, Alanine Aminotransferase (ALT/SGPT) 7, Alkaline Phosphatase 51, Total Protein 5.1L, Albumin 2.6L 04/18/23 05:20: Glucometer 149H Microbiology 04/15/23 Blood Culture - Preliminary, Resulted No growth 04/15/23 MRSA Screen - Final, Complete MRSA not isolated Home Meds Active Hydrocodone-Acetamin 5-325 mg (Hydrocodone/Acetaminophen) 5 Mg-325 Mg Tablet 1 Ea PO Q4H PRN Diltiazem 24Hr ER (Diltiazem HCl) 240 Mg Cap.er.24h 240 Mg PO DAILY Xarelto (Rivaroxaban) 20 Mg Tablet 20 Mg PO DAILY Glimepiride 4 Mg Tablet 4 Mg PO DAILY 14 Days take 1/2 pill daily until check up with [facility] doctor Protonix (Pantoprazole Sodium) 40 Mg Tablet.dr 40 Mg PO DAILY Reported Tylenol (Acetaminophen) 325 Mg Tablet 650 Mg PO BID Metformin HCl ER (Metformin HCl) 750 Mg Tab.er.24h 750 Mg PO DAILY Ferrous Sulfate 324 Mg (65 Mg Iron) Tablet.dr 324 Mg PO BID Lisinopril 5 Mg Tablet 5 Mg PO DAILY Doxazosin Mesylate 2 Mg Tablet 2 Mg PO DAILY Lovastatin 20 Mg Tablet 20 Mg PO HS Assessment/Pt Instructions PCP in 1 week Discharge Planning: <30 minutes discharge planning Discharge Instructions Discharge Diet: No Restrictions Activity as Tolerated: Yes Discharge Physical Examination Vital Signs Vital Signs Date Time Temp Pulse Resp B/P (MAP) Pulse Ox O2 Delivery O2 Flow Rate FiO2 04/18/23 03:57 36.6 84 18 115/58 (77) 94 High Flow N/C 4.00 4.00 General Appearance: No Apparent Distress, WD/WN Respiratory: Lungs Clear, Normal Breath Sounds Neurologic/Psychiatric: Alert, Oriented x3, No Motor/Sensory Deficits, Normal Mood/Affect Allergies: Coded Allergies: No Known Drug Allergies (Unverified , 04/13/23) Discharge Summary Date of Admission Apr 13, 2023 at 06:39 Date of Discharge Discharge Date: Apr 18, 2023 Discharge Diagnosis Assessment: Status post partial colon resection now with postop ileus Episode of atrial fibrillation placed on oral anticoagulation Diabetes Anemia iron deficient so giving iron infusions Plan: Supportive care Iron infusion Cardiology consult (1) Cancer of right colon Status: Acute Assessment & Plan: Status post partial colon resection by Dr. Peralta Pain management and diet advancement per primary team Abdominal exam not concerning today. Agree with Dr. Peralta about holding off on NG tube and monitoring in the ICU for 1 day. (2) Iron deficiency anemia Status: Acute Assessment & Plan: Status post 1 unit PRBC Improved hemoglobin to 8.5 today No overt signs of bleeding Continue to monitor with daily CBC Qualifiers: Qualified Codes: D50.9 - Iron deficiency anemia, unspecified (3) Diabetes mellitus Status: Chronic Assessment & Plan: Continue sliding scale insulin Qualifiers: Qualified Codes: E11.9 - Type 2 diabetes mellitus without complications (4) Oxygen desaturation Status: Acute Assessment & Plan: Patient on 5 L of nasal cannula, no oxygen requirement at home Wean as tolerated, keep saturations above 92% (5) Hyponatremia Status: Acute Assessment & Plan: Sodium 133 today, likely dilutional will continue to monitor for further decrease with daily CMP/BMP LISA EATON DO Apr 18, 2023 06:29
--- NOTE | 2023-04-18 07:02 | Progress Note - Surgery ---
TITI DAVIS 04/18/23 0702: Subjective Date Seen by a Provider: Apr 18, 2023 Time Seen by a Provider: 07:00 Subjective/Events-last exam Pt is recovering from right colon resection for right colon adenocarcinoma diagnosis. Pt is responsive, alert, and oriented. Patient says he is feeling much better and that he has felt the best since he's been here. Patient says he has no discomfort, and that he is having no pain. He has still had several bouts of flatulence and is consistenly passing gas. He did have a few bowel movements, however, it is soft and inconsistent. Diet was changed again yesterday to regular food, however, he did not eat much. Patient says he went for 3 walks yes terday, all felt comfortable with no abdominal pain. He says he used the acapella only 3 times yesterday. He has had no shortness of breath and is generally comfortable. He has been sleeping well and is eager to be discharged. Focused Exam Sepsis Stage: Ruled Out Lactate Level 04/15/23 10:36: Lactic Acid Level 0.64 Respiratory: Normal Breath Sounds, No Accessory Muscle Use, No Respiratory Distress Cardiovascular: Regular Rate, Rhythm, No Edema, No Murmur Peripheral Pulses: 2+ Radial Pulses (R), 2+ Radial Pulses (L) Skin: normal color Objective Exam Vital Signs Date Time Temp Pulse Resp B/P (MAP) Pulse Ox O2 Delivery O2 Flow Rate FiO2 04/18/23 03:57 36.6 84 18 115/58 (77) 94 High Flow N/C 4.00 4.00 04/17/23 23:26 36.6 87 18 111/57 (75) 96 High Flow N/C 4.00 4.00 04/17/23 20:00 95 High Flow N/C 4.00 04/17/23 19:58 37.8 82 18 146/73 (97) 95 High Flow N/C 2.00 04/17/23 19:12 Nasal Cannula 4.00 04/17/23 18:03 37.3 89 18 126/57 (80) 96 High Flow N/C 2.00 04/17/23 18:03 37.3 89 18 126/57 (80) 96 High Flow N/C 2.00 04/17/23 16:00 95 High Flow N/C 4.00 04/17/23 15:30 36.6 Nasal Cannula 4.50 04/17/23 15:00 87 16 136/68 (90) 96 OxyMask 4.00 04/17/23 14:00 88 18 128/64 (85) 96 OxyMask 4.00 04/17/23 13:00 91 04/17/23 13:00 91 19 130/62 (84) 94 OxyMask 4.00 04/17/23 12:00 82 21 131/67 (93) 92 OxyMask 4.00 04/17/23 12:00 94 High Flow N/C 4.00 04/17/23 11:55 36.6 04/17/23 11:00 80 32 117/57 (80) 94 OxyMask 4.00 04/17/23 10:00 86 11 121/66 (84) 96 OxyMask 4.00 04/17/23 09:00 90 22 135/74 (94) 80 OxyMask 4.00 04/17/23 08:02 36.8 04/17/23 08:00 13 133/69 (108) 92 OxyMask 4.00 04/17/23 08:00 96 OxyMask 4.00 04/17/23 07:00 83 04/17/23 07:00 83 25 119/61 (82) 92 OxyMask 4.00 I & O 04/18/23 06:59 Intake Total 4280 ml Output Total 2835 ml Balance 1445 ml Capillary Refill : General Appearance: No Apparent Distress, WD/WN, Chronically ill (history of adenocarcinoma, anemia) HEENT: PERRL/EOMI, Normal ENT Inspection Neck: Full Range of Motion (upper extremity), Supple Respiratory: Lungs Clear, Normal Breath Sounds Cardiovascular: Regular Rate, Rhythm, No JVD Peripheral Pulses: 2+ Radial Pulses (R), 2+ Radial Pulses (L) Gastrointestinal: soft, distended (minimal distention), tenderness (minimal pain at incision c/d/i) Extremity: Normal Capillary Refill (2+), Non Tender Neurologic/Psychiatric: Alert, Oriented x3 Skin: Normal Color, Warm/Dry Lymphatic: No Adenopathy (cervical) Results Lab Laboratory Tests 04/17/23 10:37: Glucometer 184H 04/17/23 14:42: Blood Gas Puncture Site LEFT RADIAL, Blood Gas Patient Temperature 36.5, Arterial Blood pH 7.43, Arterial Blood Partial Pressure CO2 43, Arterial Blood Partial Pressure O2 63L, Arterial Blood HCO3 28H, Arterial Blood Total CO2 29.8, Arterial Blood Oxygen Saturation 94, Arterial Blood Base Excess 4.2H, Tim Test NA, Blood Gas Ventilator Setting NO, Blood Gas Inspired Oxygen 2% 04/17/23 15:49: Glucometer 156H 04/17/23 20:21: Glucometer 190H 04/18/23 05:03: White Blood Count 5.0, Red Blood Count 2.99L, Hemoglobin 7.5L, Hematocrit 25L, Mean Corpuscular Volume 84, Mean Corpuscular Hemoglobin 25, Mean Corpuscular Hemoglobin Concent 30L, Red Cell Distribution Width 13.9, Platelet Count 308, Mean Platelet Volume 10.2, Immature Granulocyte % (Auto) 0, Neutrophils (%) (Auto) 69, Lymphocytes (%) (Auto) 17, Monocytes (%) (Auto) 9, Eosinophils (%) (Auto) 4, Basophils (%) (Auto) 0, Neutrophils # (Auto) 3.4, Lymphocytes # (Auto) 0.9L, Monocytes # (Auto) 0.5, Eosinophils # (Auto) 0.2, Basophils # (Auto) 0.0, Immature Granulocyte # (Auto) 0.0, Sodium Level 140, Potassium Level 3.7, Chloride Level 105, Carbon Dioxide Level 29, Anion Gap 6, Blood Urea Nitrogen 8, Creatinine 0.87, Estimat Glomerular Filtration Rate 88, BUN/Creatinine Ratio 9, Glucose Level 162H, Calcium Level 9.0, Corrected Calcium 10.1, Total Bilirubin 0.3, Aspartate Amino Transf (AST/SGOT) 14, Alanine Aminotransferase (ALT/SGPT) 7, Alkaline Phosphatase 51, Total Protein 5.1L, Albumin 2.6L 04/18/23 05:20: Glucometer 149H Microbiology 04/15/23 Blood Culture - Preliminary, Resulted No growth 04/15/23 MRSA Screen - Final, Complete MRSA not isolated Assessment/Plan Assessment/Plan Assessment/Plan Right colon resection for adenocarcinoma of the colon Post-Op Ileus Anemia History of iron def anemia Recent episode of Afib Continue to follow hemoglobin Continue to monitor O2 sats try to wean and eval for home o2 Encourage walking and continue to encourage incentive spirometer SCDs for dvt prophylaxis and afib - anticoagulation IV fluids Encourage food intake MURPHY RDZ DO 04/18/23 1815: Assessment/Plan Assessment/Plan Assessment/Plan Patient discharged prior to be seeing. Supervisory-Addendum Brief Verification & Attestation Participated in pt care: other (Patient discharged prior to be seeing.) Personally performed: other (Patient discharged prior to be seeing.) Care discussed with: other (Patient discharged prior to be seeing.) Procedures: other (Patient discharged prior to be seeing.) Procedure type: other (Patient discharged prior to be seeing.) Patient discharged prior to be seeing. TITI DAVIS Apr 18, 2023 07:02 MURPHY RDZ DO Apr 18, 2023 18:15
[2023-04-18 07:14] VITALS: BP 133/68
[2023-04-18] MEDS: dilTIAZem ER 240 MG CAPSULE PO SCH (08:16)
[2023-04-18] MEDS: IRON SUCROSE 200 MG/10 ML VIAL IV SCH (08:17)
[2023-04-18] MEDS: PANTOPRAZOLE 40 MG (PROTONIX) VIAL IV SCH (08:17)
[2023-04-18] MEDS: APIXABAN 5 MG TABLET PO SCH (08:17)
--- NOTE | 2023-04-18 10:26 | Progress Note - Cardiology ---
Cardiology SOAP Progress Note Subjective: Sitting up in recliner at the bedside States he feels well and is going home today Objective: I&O/Vital Signs 04/17/23 04/18/23 04/18/23 04/18/23 23:26 03:57 07:03 07:14 Temp 36.6 36.6 36.9 Pulse 87 84 82 Resp 18 18 18 B/P (MAP) 111/57 (75) 115/58 (77) 133/68 (89) Pulse Ox 96 94 94 96 O2 Delivery High Flow N/C High Flow N/C Nasal Cannula High Flow N/C O2 Flow Rate 4.00 4.00 4.00 6.00 4.00 4.00 04/18/23 08:00 Pulse Ox 96 O2 Delivery High Flow N/C O2 Flow Rate 6.00 04/18/23 00:00 Intake Total 3380 ml Output Total 1575 ml Balance 1805 ml Constitutional: AAO x 3, well-developed, well-nourished Respiratory: No accessory muscle use; chest expansion is symmetric, chest is bilaterally symmetric, other (good, bilateral air entry) Cardiovascular: regular rate-rhythm, S1 and S2, systolic murmur (soft BINTA at card base) Gastrointestional: No tender; soft; No guarding, No rebound; audible bowel sounds Extremities: No clubbing, No cyanosis, No significant edema Neurologic/Psychiatric: oriented x 3, other (moves all limbs equally) Skin: normal color Results/Procedures: Labs Laboratory Tests 04/17/23 10:37: Glucometer 184H 04/17/23 14:42: Blood Gas Puncture Site LEFT RADIAL, Blood Gas Patient Temperature 36.5, Arterial Blood pH 7.43, Arterial Blood Partial Pressure CO2 43, Arterial Blood Partial Pressure O2 63L, Arterial Blood HCO3 28H, Arterial Blood Total CO2 29.8, Arterial Blood Oxygen Saturation 94, Arterial Blood Base Excess 4.2H, Tim Test NA, Blood Gas Ventilator Setting NO, Blood Gas Inspired Oxygen 2% 04/17/23 15:49: Glucometer 156H 04/17/23 20:21: Glucometer 190H 04/18/23 05:03: White Blood Count 5.0, Red Blood Count 2.99L, Hemoglobin 7.5L, Hematocrit 25L, Mean Corpuscular Volume 84, Mean Corpuscular Hemoglobin 25, Mean Corpuscular Hemoglobin Concent 30L, Red Cell Distribution Width 13.9, Platelet Count 308, Mean Platelet Volume 10.2, Immature Granulocyte % (Auto) 0, Neutrophils (%) (Auto) 69, Lymphocytes (%) (Auto) 17, Monocytes (%) (Auto) 9, Eosinophils (%) (Auto) 4, Basophils (%) (Auto) 0, Neutrophils # (Auto) 3.4, Lymphocytes # (Auto) 0.9L, Monocytes # (Auto) 0.5, Eosinophils # (Auto) 0.2, Basophils # (Auto) 0.0, Immature Granulocyte # (Auto) 0.0, Sodium Level 140, Potassium Level 3.7, Chloride Level 105, Carbon Dioxide Level 29, Anion Gap 6, Blood Urea Nitrogen 8, Creatinine 0.87, Estimat Glomerular Filtration Rate 88, BUN/Creatinine Ratio 9, Glucose Level 162H, Calcium Level 9.0, Corrected Calcium 10.1, Total Bilirubin 0.3, Aspartate Amino Transf (AST/SGOT) 14, Alanine Aminotransferase (ALT/SGPT) 7, Alkaline Phosphatase 51, Total Protein 5.1L, Albumin 2.6L 04/18/23 05:20: Glucometer 149H Microbiology 04/15/23 Blood Culture - Preliminary, Resulted No growth 04/15/23 MRSA Screen - Final, Complete MRSA not isolated Laboratory Tests 04/17/23 04:18 04/18/23 05:03 A/P: Assessment: PAF, first documented on 04/16/23 - Echo on 04-17-23: LVEF 55-60%. Grade 1 diastolic dysfunction. 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
[2023-04-18 10:49] VITALS: BP 133/68
[2023-04-18] MEDS ORDERED: PANTOPRAZOLE 40 MG (PROTONIX) TAB PO SCH (21:00)
--- NOTE | 2023-04-20 08:44 | Physician Query Clarification ---
[facility] Path Diagnosis Admission/Discharge Admission Date: Apr 13, 2023 at 06:39 Discharge Date: Apr 18, 2023 at 10:47 Dr. Breaux, The medical record reflects the following: Rt. colon cancer The pathology report findings document: Moderately differentiated Colonic Adenocarcinoma. Tumor site: ascending colon. Mass location: cecum/ascending bowel. Tubulovillous adenoma Question: Do you agree with the pathology report findings of cecum/ascending moderately differentiated adenocarcinoma and tubulovillous adenoma? Please document a response in Progress Notes or Discharge Summary. 1. Agree with pathological diagnosis of cecum/ascending moderately differentiated adenocarcinoma and tubulovillous adenoma. 2. No - Do not agree with pathology findings of cecum/ascending moderately differentiated adenocarcinoma and tubulovillous adenoma. 3. Other, with explanation of the clinical findings. 4. Clinically undetermined, no explanation for the clinical findings. Is is appropriate for a provider to add additional documentation (addenda) to the record to explain the evaluation & care up to 30 days post-discharge. See [facility] and Patient Record Guidelines below. The [facility] Chapter Record of Care, Standard; [id number].01.03.01EP 1: "The hospital has a written policy that required timely entry of information into the medical record." According to [facility] Patient Record Guidelines, ARTICLE XXI. CORRECTIONS AND ADDENDA, Modifications (addenda amendments, corrections and retractions) should be made timely and no later than regulatory requirements for record completion (i.e. 30 days post discharge). Official coding guidelines require coders to query the physician for agreement with pathology findings that occur during the encounter. Coders are not allowed to pull information directly from the path reports. PHYSICIAN RESPONSE Pathology Report Findings: Yes,agree w/path dx as documented In responding to this query, please exercise your independent professional judgment. The purpose of this communication is to more accurately reflect the complexity of your patients condition. The fact that a question is asked does not imply that any particular answer is desired or expected. Thank you for your timely response to this clarification. Requestors name: Winston THIS PHYSICIAN QUERY FORM IS A PERMANENT PART OF THE MEDICAL RECORD WINSTON STROUD Apr 20, 2023 08:44 LISA BREAUX DO Apr 20, 2023 11:30
== END 2023-04-18 10:47 | disposition home health service (06) | DRG 329 ==
LOC: 4TH 06:39 → SURG 06:41 → ICU 11:37 → 4TH 16:05 → ICU 04-15 04:22 → 4TH 04-17 17:45
PROVIDERS: ADMIT Surgery; ATTEND Surgery
PROC: 0DTF0ZZ Resection of Right Large Intestine, Open Approach (ICD-10-PCS; principal; 2023-04-13 08:00)
DX: C18.8 Malignant neoplasm of overlapping sites of colon (principal); J96.01 Acute respiratory failure with hypoxia; E87.1 Hypo-osmolality and hyponatremia; K91.89 Other postprocedural complications and disorders of digestive system; K56.7 Ileus, unspecified; I97.191 Other postprocedural cardiac functional disturbances following other surgery; D12.3 Benign neoplasm of transverse colon; D50.9 Iron deficiency anemia, unspecified; E11.9 Type 2 diabetes mellitus without complications; I10 Essential (primary) hypertension; E78.5 Hyperlipidemia, unspecified; R11.15 Cyclical vomiting syndrome unrelated to migraine; I48.0 Paroxysmal atrial fibrillation; Z79.84 Long term (current) use of oral hypoglycemic drugs; Z79.899 Other long term (current) drug therapy
CPT/HCPCS: 36415; 71045; 74019; 80048; 80053; 82607; 82728; 82805; 82947; 83036; 83540; 83550; 83605; 83735; 84100; 85007; 85025; 85027; 86850; 86900; 86901; 86920; 87040; 87081; 93005; 93306; 94640; 94664; 94760; 94761

== ENCOUNTER → 2023-07-18 | Outpatient (CLI) | payer MEDICARE, OTHER ==
[~2023-07-18] MED LIST changes: +ACHD5005 PO; +CATHETER FLUSH 10 ML SYR IVP PRN; +DILT240C91 PO; +REGADENOSON 0.4 MG/5 ML SYR IV ONE; +RIVA20TA PO
[2023-07-18 13:18] VITALS: BP 144/74
--- NOTE | 2023-07-21 14:03 | STRESS TEST ---
DATE OF SERVICE: 07/18/2023 RESTING AND POST REGADENOSON TECHNETIUM-99M TETROFOSMIN SPECT CT IMAGING ORDERING PHYSICIAN: Varinder Thomas MD; CONSTANTIN; SUDHEER; CIRILO; PRIMARY PHYSICIAN: Vaibhav Ni M.D. CLINICAL DIAGNOSIS: Paroxysmal atrial fibrillation. Baseline images were carried out after injection of 10.99 mCi of technetium-99m tetrofosmin. This was followed by 0.4 mg regadenoson and 32.4 mCi of technetium-99m tetrofosmin for stress imaging. The electrocardiogram showed sinus rhythm at baseline. It did not change significantly with regadenoson infusion. A few isolated premature ventricular contractions were seen during the study. The patient tolerated the procedure well. Review of images at rest and following stress does not indicate any significant perfusion defects consistent with myocardial ischemia or infarction. Gated images show normal global left ventricular systolic function with normal regional wall motion. Left ventricular ejection fraction is calculated to be 76%. CONCLUSIONS: 1. No evidence of significant myocardial ischemia or infarction on this study. 2. Normal regional wall motion. Normal global left ventricular systolic function with a calculated ejection fraction of 76%. Job ID: [id number] DocumentID: [id number] Dictated Date: 07/21/2023 10:32:00 [place] Department Supervisor Date: 07/21/2023 14:00:00 Dictated By: VARINDER THOMAS MD; CONSTANTIN; SUDHEER; CIRILO;
== END ==
LOC: CARD 12:00
PROVIDERS: ATTEND Internal Medicine Cardiovascular Disease
DX: I48.0 Paroxysmal atrial fibrillation (principal)
CPT/HCPCS: 78452; 93017; A9502

== ENCOUNTER 2023-07-19 14:57 | Outpatient (CLI) | payer MEDICARE, OTHER ==
[~2023-07-19 14:57] MED LIST changes: -CATHETER FLUSH 10 ML SYR IVP PRN; -REGADENOSON 0.4 MG/5 ML SYR IV ONE
== END 2023-07-19 15:25 ==
LOC: SLEEP 14:57
PROVIDERS: ATTEND Nurse Practitioner
DX: G47.33 Obstructive sleep apnea (adult) (pediatric) (principal); G47.36 Sleep related hypoventilation in conditions classified elsewhere; I10 Essential (primary) hypertension
CPT/HCPCS: G0399

== ENCOUNTER 2023-08-12 20:25 | Outpatient (CLI) | payer MEDICARE, OTHER | END 2023-08-13 05:35 | LOC: SLEEP 20:25 | PROVIDERS: ATTEND Otolaryngology Otolaryngology/Facial Plastic Surgery | DX: G47.33 Obstructive sleep apnea (adult) (pediatric) (principal) | CPT/HCPCS: 95811 ==